=== PATIENT | female | born 1960 | race Caucasian/White ===

== ENCOUNTER 2019-12-06 13:29 | Emergency (ER) | payer OTHER ==
--- NOTE | 2019-12-06 14:39 | ER ---
Nurse's Notes [facility] Name: Melania Renteria Age: 59 yrs Sex: Female : 1960 Arrival Date: 12/06/2019 Time: 13:36 Bed 15 Private MD: Diagnosis: Abrasion of left ear Presentation: 12/05 13:42 Chief complaint: Patient states: Left ear bleeding for 3 hours. Happened after cleaning ll1 it out. No fever. Coronavirus screen: Proceed with normal triage. Patient denies a cough. Patient denies shortness of breath or difficulty breathing. Patient denies measured and/or subjective temperature greater than 100.4F prior to today's visit. Patient denies travel on a cruise ship or to a country the [facility] currently lists as an affected area. Patient denies contact with known and/or suspected case of COVID-19. Ebola Screen: Patient denies travel to an Ebola-affected area in the 21 days before illness onset. Initial Sepsis Screen: Does the patient meet any 2 criteria? No. Patient's initial sepsis screen is negative. Risk Assessment: Do you want to hurt yourself or someone else? Patient reports no desire to harm self or others. Onset of symptoms was December 06, 2019. 13:42 Method Of Arrival: Wheelchair ll1 13:42 Acuity: SONJA 4 ll1 Historical: - Allergies: 13:41 PENICILLINS; ll1 - PMHx: 13:41 Hypothyroidism; Depression; Arthritis; ll1 - PSHx: 13:41 ; Cholecystectomy; Lap Band; ll1 - Immunization history:: Flu vaccine is not up to date. - Social history:: Smoking status: Patient reports the use of cigarette tobacco products, smokes one-half pack cigarettes per day, Patient/guardian denies using alcohol, street drugs. Screenin:12 Abuse screen: Denies threats or abuse. Denies injuries from another. Nutritional ph screening: No deficits noted. Tuberculosis screening: No symptoms or risk factors identified. Fall Risk None identified. Assessment: 15:10 General: Appears in no apparent distress. comfortable, obese, well groomed, Behavior is ph calm, cooperative, appropriate for age. Pain: Denies pain. Neuro: Level of Consciousness is awake, alert, obeys commands, Oriented to person, place, time, situation. Cardiovascular: Capillary refill < 3 seconds in bilateral fingers Patient's skin is warm and dry. Respiratory: Airway is patent Respiratory effort is even, unlabored. EENT: Ear canal dried blood noted to outer ear, blood clot in place, not actively bleeding at this time. Derm: Skin is healthy with good turgor, Skin is pink, warm \T\ dry. Musculoskeletal: Circulation, motion, and sensation intact. Range of motion: intact in all extremities. Vital Signs: 13:42 BP 118 / 79; Pulse 81; Resp 19; Temp 97.3; Pulse Ox 94% ; Pain 0/10; ll1 ED Course: 13:36 Patient arrived in ED. mr 13:41 Arm band placed on. ll1 13:43 Triage completed. ll1 13:57 Veronica Pablo, RN is Primary Nurse. ph 14:18 Cata Handy FNP-C [facility]. kb 14:18 Francesco Milton MD is Attending Physician. kb 15:13 Patient has correct armband on for positive identification. Bed in low position. Call ph light in reach. Side rails up X 1. Pulse ox on. NIBP on. Door closed. Noise minimized. Warm blanket given. 15:13 No provider procedures requiring assistance completed. Patient did not have IV access ph during this emergency room visit. Administered Medications: No medications were administered Outcome: 14:38 Discharge ordered by MD. kb 15:13 Discharged to home via wheelchair, with friend. ph 15:13 Condition: good 15:13 Discharge instructions given to patient, Instructed on discharge instructions, follow up and referral plans. Demonstrated understanding of instructions, follow-up care. 15:14 Patient left the ED. ph Signatures: Cata Handy FNP-C FNP-Rosalba Chiqui Lerma Veronica Pablo, RN RN ph Alba Mills RN RN 1
--- NOTE | 2019-12-06 14:39 | EDPHYS ---
Physician Documentation [facility] Name: Melania Renteria Age: 59 yrs Sex: Female : 1960 Arrival Date: 12/06/2019 Time: 13:36 Bed 15 Private MD: ED Physician Francesco Milton HPI: 12/05 14:36 This 59 yrs old Female presents to ER via Wheelchair with complaints of Ear kb bleeding. 14:36 The patient presents with an injury. The complaints affect the left ear. Onset: The kb symptoms/episode began/occurred this morning. Modifying factors: The symptoms are alleviated by nothing, the symptoms are aggravated by nothing. Associated signs and symptoms: The patient has no apparent associated signs or symptoms. Severity of symptoms: At their worst the symptoms were mild in the emergency department the symptoms are unchanged. The patient has not experienced similar symptoms in the past. The patient has not recently seen a physician. Pt reports she cleaned her ear with a Q tip this morning and noticed blood coming from it about 45 minutes later. Reports she hasn't been able to get it to stop bleeding since then. Denies pain. Historical: - Allergies: 13:41 PENICILLINS; ll1 - PMHx: 13:41 Hypothyroidism; Depression; Arthritis; ll1 - PSHx: 13:41 ; Cholecystectomy; Lap Band; ll1 - Immunization history:: Flu vaccine is not up to date. - Social history:: Smoking status: Patient reports the use of cigarette tobacco products, smokes one-half pack cigarettes per day, Patient/guardian denies using alcohol, street drugs. ROS: 14:34 Constitutional: Negative for fever, chills, and weight loss, Cardiovascular: Negative kb for chest pain, palpitations, and edema, Respiratory: Negative for shortness of breath, cough, wheezing, and pleuritic chest pain, Abdomen/GI: Negative for abdominal pain, nausea, vomiting, diarrhea, and constipation, Neuro: Negative for headache, weakness, numbness, tingling, and seizure. 14:34 ENT: Positive for bleeding from left ear. Exam: 14:34 Constitutional: This is a well developed, well nourished patient who is awake, alert, kb and in no acute distress. Head/Face: Normocephalic, atraumatic. Chest/axilla: Normal chest wall appearance and motion. Nontender with no deformity. No lesions are appreciated. Cardiovascular: Regular rate and rhythm with a normal S1 and S2. No gallops, murmurs, or rubs. Normal PMI, no JVD. No pulse deficits. Respiratory: Lungs have equal breath sounds bilaterally, clear to auscultation and percussion. No rales, rhonchi or wheezes noted. No increased work of breathing, no retractions or nasal flaring. Abdomen/GI: Soft, non-tender, with normal bowel sounds. No distension or tympany. No guarding or rebound. No evidence of tenderness throughout. Neuro: Awake and alert, GCS 15, oriented to person, place, time, and situation. Cranial nerves II-XII grossly intact. Motor strength 5/5 in all extremities. Sensory grossly intact. Cerebellar exam normal. Normal gait. 14:34 ENT: Ear canal(s): small abrasion noted to ear canal at 6 o'clock with clotted blood, no active bleeding at this time, TM's: are normal. Vital Signs: 13:42 BP 118 / 79; Pulse 81; Resp 19; Temp 97.3; Pulse Ox 94% ; Pain 0/10; ll1 MDM: 14:18 Patient medically screened. kb 14:34 Data reviewed: vital signs, nurses notes. Data interpreted: Pulse oximetry: on room air kb is 94 %. Interpretation: normal. Counseling: I had a detailed discussion with the patient and/or guardian regarding: the historical points, exam findings, and any diagnostic results supporting the discharge/admit diagnosis, the need for outpatient follow up, a family practitioner, to return to the emergency department if symptoms worsen or persist or if there are any questions or concerns that arise at home. Administered Medications: No medications were administered Disposition: 19:37 Co-signature as Attending Physician, Francesco Milton MD. mh7 Disposition: 12/06/19 14:38 Discharged to Home. Impression: Abrasion of left ear. - Condition is Stable. - Discharge Instructions: Abrasion, [id number]. - Medication Reconciliation Form, Thank You Letter, Antibiotic Education, Prescription Opioid Use form. - Follow up: Emergency Department; When: As needed; Reason: Worsening of condition. Follow up: Private Physician; When: 2 - 3 days; Reason: Recheck today's complaints, Continuance of care, Re-evaluation by your physician. Signatures: Cata Handy, SHILPA PETERSEN-Veronica Servin, RN RN ph Alba Mills RN RN ll1 Francesco Milton MD MD mh7 Corrections: (The following items were deleted from the chart) 15:14 14:38 12/06/2019 14:38 Discharged to Home. Impression: Abrasion of left ear. Condition ph is Stable. Forms are Medication Reconciliation Form, Thank You Letter, Antibiotic Education, Prescription Opioid Use. Follow up: Emergency Department; When: As needed; Reason: Worsening of condition. Follow up: Private Physician; When: 2 - 3 days; Reason: Recheck today's complaints, Continuance of care, Re-evaluation by your physician. kb
[2019-12-06 15:20] VITALS: BP 118/79; TEMP 97.3; O2SAT 94
== END 2019-12-06 15:14 | disposition home or self-care (01) ==
LOC: ER 13:29
DX: S00.412A Abrasion of left ear, initial encounter (principal); W22.8XXA Striking against or struck by other objects, initial encounter; Y93.E8 Activity, other personal hygiene; Y92.9 Unspecified place or not applicable; F17.210 Nicotine dependence, cigarettes, uncomplicated; Z88.0 Allergy status to penicillin
CPT/HCPCS: 99283

== ENCOUNTER 2020-12-14 14:07 | Emergency (ER) | payer OTHER ==
[2020-12-14 19:07] LABS: Absolute Lymphocytes (CBC) 2.6 K/uL (0.7-4.9)
[2020-12-14 19:21] LABS: Basophils % 0.8 % (0-1.3); Hematocrit 46.6 % (36.0-45.0); Lymphocytes % 29.9 % (15.3-44.8); MPV 9.1 fL (7.6-11.3); RBC Red Blood Cell Count 5.33 M/uL (3.86-4.86)
[2020-12-14 19:31] LABS: Albumin 3.5 g/dL (3.4-5.0); Bilirubin Direct 0.2 mg/dL (0-0.2); Bilirubin Total 0.6 mg/dL (0.2-1.0); Potassium 3.5 mmol/L (3.5-5.1); Protein, Total 7.8 g/dL (6.4-8.2); Thyroid Stimulating Hormone 1.63 uIU/mL (0.360-3.740)
--- NOTE | 2020-12-14 20:05 | ER ---
Nurse's Notes [facility] Name: Melania Renteria Age: 60 yrs Sex: Female : 1960 Arrival Date: 12/14/2020 Time: 14:12 Bed 15 Private MD: Diagnosis: Abnormal uterine and vaginal bleeding, unspecified Presentation: 12/14 14:38 Chief complaint: Patient states: Vaginal bleeding this morning. Didn't have any problem ca1 like this in the past. Was sitting on recliner and stood up with blood on recliner and was running down my legs. Coronavirus screen: Client denies travel out of the [place] in the last 14 days. At this time, the client does not indicate any symptoms associated with coronavirus-19. Ebola Screen: Patient negative for fever greater than or equal to 101.5 degrees Fahrenheit, and additional compatible Ebola Virus Disease symptoms Patient denies exposure to infectious person. Patient denies travel to an Ebola-affected area in the 21 days before illness onset. No symptoms or risks identified at this time. Initial Sepsis Screen: Does the patient meet any 2 criteria? No. Patient's initial sepsis screen is negative. Does the patient have a suspected source of infection? No. Patient's initial sepsis screen is negative. Risk Assessment: Do you want to hurt yourself or someone else? Patient reports no desire to harm self or others. Onset of symptoms was December 14, 2020. 14:38 Method Of Arrival: Wheelchair ca1 14:38 Acuity: SONJA 3 ca1 Historical: - Allergies: 14:42 PENICILLINS; ca1 - PMHx: 14:42 Arthritis; Depression; Hypothyroidism; Diabetes mellitus; Hypertensive disorder; ca1 - Immunization history:: Client reports having NOT received the Covid vaccine. Flu vaccine is not up to date. - Social history:: Smoking status: Patient reports the use of cigarette tobacco products, smokes one pack cigarettes per day. Screenin:42 Abuse screen: Denies threats or abuse. Denies injuries from another. Nutritional zb screening: No deficits noted. Tuberculosis screening: No symptoms or risk factors identified. Fall Risk None identified. Assessment: 18:40 General: Appears in no apparent distress. Behavior is calm, cooperative, appropriate zb for age, Denies fever, feeling ill, fatigue, chills. Pain: Complains of pain in abdomen. Neuro: Level of Consciousness is awake, alert, obeys commands, Oriented to person, place, time, situation. Cardiovascular: Patient's skin is warm and dry. Respiratory: Airway is patent. GI: Abdomen is obese. : Urine is blood tinged, Reports vaginal bleeding that is moderate flow, Parent/caregiver report the patient having pain lower quadrant(s). Derm: Skin is intact, is healthy with good turgor, Skin is dry, Skin is normal. Derm: Musculoskeletal: Range of motion: intact in all extremities. 19:30 Reassessment: Patient appears in no apparent distress at this time. Patient and/or zb family updated on plan of care and expected duration. Pain level reassessed. Patient is alert, oriented x 3, equal unlabored respirations, skin warm/dry/pink. 20:04 Reassessment: Patient appears in no apparent distress at this time. Patient and/or zb family updated on plan of care and expected duration. Pain level reassessed. Patient is alert, oriented x 3, equal unlabored respirations, skin warm/dry/pink. ECP explained care to patient. patient remain in bed at this time. Vital Signs: 14:38 BP 112 / 79; Pulse 89; Resp 18 S; Temp 97.6(TE); Pulse Ox 99% on R/A; Weight 158.76 kg ca1 (R); Height 5 ft. 7 in. (170.18 cm) (R); Pain 1/10; 18:42 BP 140 / 95; Pulse 66; Resp 16; Pulse Ox 97% on R/A; zb 20:01 BP 143 / 96; Pulse 65; Resp 16; Pulse Ox 97% on R/A; zb 14:38 Body Mass Index 54.82 (158.76 kg, 170.18 cm) ca1 ED Course: 14:12 Patient arrived in ED. mr 14:42 Triage completed. ca1 14:42 Arm band placed on right wrist. ca1 17:14 Patient placed in an exam room, on a stretcher. zb 17:16 Gus Ospina NP is PHCP. pm1 17:16 Bruno Morejon MD is Attending Physician. pm1 17:28 Amber Luo RN is Primary Nurse. zb 18:09 Patient has correct armband on for positive identification. Bed in low position. Call mh5 light in reach. Side rails up X 1. Warm blanket given. Pillow given. Pulse ox on. NIBP on. 18:45 Missed attempt(s): 22 gauge in left wrist. upper arm. [facility] 19:00 Inserted saline lock: 24 gauge in right antecubital area, using aseptic technique. zb Blood collected. 20:01 Assist provider with pelvic exam: Set up pelvic tray. Performed by Gus buchanan Patient tolerated well. 20:08 IV discontinued, intact, bleeding controlled, No redness/swelling at site. Pressure zb dressing applied. Administered Medications: No medications were administered Outcome: 20:04 Discharge ordered by . pm1 20:07 Discharged to home via wheelchair. zb 20:07 Condition: stable 20:07 Discharge instructions given to patient, Instructed on discharge instructions, follow up and referral plans. Demonstrated understanding of instructions, follow-up care. 20:22 Patient left the ED. zb Signatures: Chiqui Lerma Gus Pastor NP [employer] 1 Naima Garcias [facility] Beronica Clayton RN RN Amber Hale RN RN zkeegan
--- NOTE | 2020-12-14 20:05 | EDPHYS ---
Physician Documentation [facility] Name: Melania Renteria Age: 60 yrs Sex: Female : 1960 Arrival Date: 12/14/2020 Time: 14:12 Bed 15 Private MD: JENN Physician Bruno Morejon HPI: 12/14 17:31 This 60 yrs old Female presents to ER via Wheelchair with complaints of pm1 Vaginal Bleeding. 17:31 The patient presents with vaginal bleeding that is. Onset: The symptoms/episode pm1 began/occurred this morning. Modifying factors: The symptoms are alleviated by nothing, the symptoms are aggravated by nothing. Associated signs and symptoms: Pertinent negatives: dysuria, fever, nausea, vomiting, abdominal pain. Severity of symptoms: in the emergency department the symptoms are unchanged. The patient is not sexually active. The patient has not experienced similar symptoms in the past. The patient has not recently seen a physician. menopause 11 years ago. Historical: - Allergies: 14:42 PENICILLINS; ca1 - PMHx: 14:42 Arthritis; Depression; Hypothyroidism; Diabetes mellitus; Hypertensive disorder; ca1 - Immunization history:: Client reports having NOT received the Covid vaccine. Flu vaccine is not up to date. - Social history:: Smoking status: Patient reports the use of cigarette tobacco products, smokes one pack cigarettes per day. ROS: 17:31 Positive for vaginal bleeding, Negative for urinary symptoms, pelvic pain, flank pm1 pain. 17:31 Constitutional: Negative for fever, chills, and weight loss. 17:31 Cardiovascular: Negative for chest pain, palpitations, and edema, Respiratory: Negative for shortness of breath, cough, wheezing, and pleuritic chest pain, Abdomen/GI: Negative for abdominal pain, nausea, vomiting, diarrhea, and constipation, Back: Negative for injury and pain, Skin: Negative for injury, rash, and discoloration, Neuro: Negative for headache, weakness, numbness, tingling, and seizure. 17:31 All other systems are negative. Exam: 17:31 Constitutional: This is a well developed, well nourished patient who is awake, alert, pm1 and in no acute distress. Head/Face: Normocephalic, atraumatic. 17:31 Skin: Warm, dry with normal turgor. Normal color with no rashes, no lesions, and no evidence of cellulitis. MS/ Extremity: Pulses equal, no cyanosis. Neurovascular intact. Full, normal range of motion. 17:31 Eyes: Exam is negative for acute changes, Extraocular movements: no acute changes, Conjunctiva: normal, no injection, no acute changes, Sclera: no acute changes, icterus, is not appreciated. 17:31 ENT: Mouth: Lips: normal, Oral mucosa: normal, pink and intact, moist. 17:31 Cardiovascular: Rate: normal, Rhythm: regular, Pulses: no pulse deficits are appreciated. 17:31 Respiratory: Exam negative for acute changes, respiratory distress, shortness of breath, Breath sounds: are clear throughout. 17:31 Abdomen/GI: Inspection: obese Palpation: abdomen is soft and non-tender, in all quadrants. 17:31 Neuro: Exam negative for acute changes, Orientation: is normal, Mentation: is normal, Motor: is normal, moves all fours. 20:03 : Pelvic Exam: External exam: Patient unable to tolerate lying on her back. Patient pm1 in left side lying position and visualized blood present from atrophic introitus and vagina. No blood present from anus, Gissel Sutton RN. Vital Signs: 14:38 BP 112 / 79; Pulse 89; Resp 18 S; Temp 97.6(TE); Pulse Ox 99% on R/A; Weight 158.76 kg ca1 (R); Height 5 ft. 7 in. (170.18 cm) (R); Pain 1/10; 18:42 BP 140 / 95; Pulse 66; Resp 16; Pulse Ox 97% on R/A; zb 20:01 BP 143 / 96; Pulse 65; Resp 16; Pulse Ox 97% on R/A; zb 14:38 Body Mass Index 54.82 (158.76 kg, 170.18 cm) ca1 MDM: 17:23 Patient medically screened. [facility] 20:03 Data reviewed: vital signs. Data interpreted: Pulse oximetry: on room air is 97 %. pm1 Interpretation: normal. Counseling: I had a detailed discussion with the patient and/or guardian regarding: the historical points, exam findings, and any diagnostic results supporting the discharge/admit diagnosis, lab results, the need for outpatient follow up, an OB/Gyne specialist, to return to the emergency department if symptoms worsen or persist or if there are any questions or concerns that arise at home. 12/14 17:28 Order name: Basic Metabolic Panel; Complete Time: 19:33 pm1 12/14 17:28 Order name: CBC with Diff; Complete Time: 19:33 pm1 12/14 17:28 Order name: Hepatic Function; Complete Time: 19:33 pm1 12/14 17:28 Order name: TSH; Complete Time: 19:33 pm1 12/14 18:35 Order name: Urine Microscopic Only zb 12/14 17:28 Order name: IV Saline Lock; Complete Time: 19:13 pm1 12/14 17:28 Order name: Labs collected and sent; Complete Time: 19:13 pm1 Administered Medications: No medications were administered Disposition: 12/15 13:23 Co-signature as Attending Physician, Bruno Mroejon MD I agree with the assessment and yves plan of care. Disposition Summary: 12/14/20 20:04 Discharge Ordered Location: Home pm1 Problem: new pm1 Symptoms: have improved pm1 Condition: Stable pm1 Diagnosis - Abnormal uterine and vaginal bleeding, unspecified pm1 Followup: pm1 - With: Emergency Department - When: As needed - Reason: Worsening of condition Followup: pm1 - With: Private Physician - When: 2 - 3 days - Reason: Recheck today's complaints, Continuance of care, Re-evaluation by your physician Discharge Instructions: - Discharge Summary Sheet pm1 - Abnormal Uterine Bleeding pm1 - Postmenopausal Bleeding pm1 Forms: - Medication Reconciliation Form pm1 - Thank You Letter pm1 - Antibiotic Education pm1 - Prescription Opioid Use pm1 Signatures: Dispatcher [employer] Bruno Sky MD MD cha Marinas, Patrick, NP SILICATOR pm1 Beronica Clayton, RN RN ca1
[2020-12-14 21:16] VITALS: TEMP 97.6
[2020-12-14 21:18] VITALS: O2SAT 97
[2020-12-14 21:20] VITALS: BP 143/96
== END 2020-12-14 20:22 | disposition home or self-care (01) ==
LOC: ER 14:07
DX: N93.9 Abnormal uterine and vaginal bleeding, unspecified (principal); I10 Essential (primary) hypertension; F17.210 Nicotine dependence, cigarettes, uncomplicated; Z88.0 Allergy status to penicillin
CPT/HCPCS: 36415; 80048; 80076; 84443; 85025; 99284

== ENCOUNTER 2021-01-08 06:50 | Day surgery (SDC) | payer OTHER ==
[2021-01-08] MEDS ORDERED: NA CHLORIDE 0.9% 1,000 ML ONE ×2 (07:16→08:08)
[2021-01-08] MEDS ORDERED: LIDOCAINE 1% W/EPI 1:100,000 MDV 20 ML VIAL ONE (07:39)
[2021-01-08] MEDS ORDERED: MIDAZOLAM HCL 2 MG/2 ML INJ ONE (07:50)
[2021-01-08] MEDS ORDERED: FENTANYL CITR 100 MCG/2 ML ONE (07:50)
[2021-01-08] MEDS ORDERED: propofoL 200 MG/20 ML VIAL IV ONE (07:50)
[2021-01-08] MEDS ORDERED: LIDOCAINE 2% MPF 5 ML VIAL ONE (07:50)
[2021-01-08] MEDS ORDERED: KETOROLAC 30 MG/ML INJ ONE (08:06)
[2021-01-08] MEDS ORDERED: dexAMETHasone 4 MG/ML VIAL ONE (08:07)
[2021-01-08] MEDS ORDERED: ONDANSETRON 4 MG/2 ML VIAL ONE (08:07)
[2021-01-08] MEDS ORDERED: MEPERIDINE HCL 25 MG/ML SYR IM PRN (08:44)
[2021-01-08] MEDS ORDERED: SEMAGLUTIDE 7 MG PO SCH (09:00)
[2021-01-08] MEDS ORDERED: HOME MED 1 EA UNK (Duloxetine Hcl [Duloxetine Hcl] 60 MG Capsule.Dr) PO SCH (09:00)
[2021-01-08] MEDS ORDERED: PANTOPRAZOLE 40MG TABLET PO SCH (09:00)
[2021-01-08] MEDS ORDERED: HOME MED 1 EA UNK (Levothyroxine Sodium [Levothyroxine] 200 MCG Capsule) PO SCH (09:00)
[2021-01-08] MEDS ORDERED: LOSARTAN POTASSIUM 50 MG TABLET PO SCH (09:00)
--- NOTE | 2021-01-08 09:04 | P.BOP ---
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
[2021-01-08 10:00] VITALS: BP 118/73; TEMP 97.1; O2SAT 93
--- NOTE | 2021-01-08 10:26 | OP ---
Date of Procedure: 01/08/2021 Surgeon: Tonie Cortez MD [employer] Specials: None. Preoperative Diagnosis: Postmenopausal bleeding, morbid obesity with BMI of 68. The patient on anti coagulation at the time the bleeding occurred. Postoperative Diagnosis: Postmenopausal bleeding, morbid obesity with BMI of 68. The patient on ant icoagulation at the time the bleeding occurred. Procedure Performed: 1.Exam under anesthesia. 2.Hysteroscopy. 3.Dilation and curettage. Anesthesia: General with LMA. Specimens: Endometrial biopsy with Pipelle and endometrial curettings with a curette. Estimated Blood Loss: Minimal. Complications: No complications. Drains: None. Condition: Stable. Findings: Severely anteflexed cavity. No intracavitary masses. Small amount of intrauterine adhesi ons on the right side. Description Of Procedure: After informed consent was verified, the patient was taken back to OR, [facility] in a supine fashion on the operating table. General anesthesia was given. She was placed in berta fady lithotomy position using Kolby stirrups. Carefully moved down and positioning was readjusted to facilitate a pelvic exam. Speculum placed to expose the cervix. It was difficult to expose this. So an exam was performed to palpate the vaginal canal with unremarkable vulva, vagina unremarkable. No prolapse noted. Then, th e patient was repositioned, fold down, and speculum placed to expose the cervix. Anterior lip graspe d with a single-tooth tenaculum and external os opened up with the long hemostats. Then, the diagnos tic SlimLine hysteroscope used to enter the cervical canal under direct vision. It was traversed thr ough the cervical canal into the uterine cavity. Cavity was unremarkable. Severe anteflexion had to be achieved to get into the cavity. Both tubal ostia were well visualized. The adhesions were take n down with the help of the tip of the scope. Then, no intracavitary masses were noted. No abnormal , irregular endometrium noted, however, in 1 area, there was slight thickening and calcifications. T he scope was pulled out. Endometrial Pipelle was used to obtain a biopsy. Three passes were taken a nd handed out. This was done because there was a suspicion that there could be not an adequate sampl ing with curettage. The cervix was dilated to 14-Mongolian, then #1 curette was used to perform curettage on a Telfa to retr ieve the specimen. Once this was done 360 on all hay, handed off for permanent pathology. The ten aculum was taken down under direct vision. The sites were checked. Minimal bleeding on the left zhao e, completely hemostatic on the right. This was observed with pressure and there was good hemostasis . All these were removed. Instrument, needle, and sponge counts were correct at the end of the case . The patient was carefully transferred from her operating room bed to the outpatient bed and she wa s taken to the PACU in stable condition. There was a small ecchymotic area on the right lower extrem ity on the leg, inside the area of the SCD placement. We will discuss with the patient if this is so mething that was preexistent, but no complications. She will have 1 week followup with me. STANTON Voice ID: [id number] Report ID: [id number]
== END 2021-01-08 09:50 | disposition home or self-care (01) ==
LOC: OR 06:50
PROVIDERS: ATTEND Obstetrics & Gynecology
PROC: 0UJD8ZZ Inspection of Uterus and Cervix, Via Natural or Artificial Opening Endoscopic (ICD-10-PCS; 2021-01-08)
PROC: 0UDB7ZX Extraction of Endometrium, Via Natural or Artificial Opening, Diagnostic (ICD-10-PCS; principal; 2021-01-08 07:30)
DX: N95.0 Postmenopausal bleeding (principal); E66.01 Morbid (severe) obesity due to excess calories; Z68.44 Body mass index [BMI] 60.0-69.9, adult; I10 Essential (primary) hypertension; F17.200 Nicotine dependence, unspecified, uncomplicated; N83.291 Other ovarian cyst, right side; Z20.822 Contact with and (suspected) exposure to COVID-19
CPT/HCPCS: 82947; 88305; 58558; U0002; J2704; J1100; J2250; J3010; J7030 ×2; J2405

== ENCOUNTER 2022-01-14 21:50 | Inpatient (IN) | payer OTHER ==
--- OUTSIDE RECORDS SUMMARY | 2022-01-14 23:03 | XMS REPORT | Continuity of Care Document ---
:1960 Author Organization [facility] t Address [address] [place] [address] Dr. Davis [address] [place] [id number] Care Team Providers Name Role Phone OLIVERIO BLANCAS Attending Clinician Unavailable VERENICE Attending Clinician Unavailable OLIVERIO BLANCAS Attending Clinician Unavailable OLIVERIO BLANCAS Admitting Clinician Unavailable VERENICE Admitting Clinician Unavailable Payers Payer Name Policy Type Policy Number Effective Date Expiration Date S opal MEDICARE A B [id number] 2006 00:00:00 MEDICAID [place] [id number] 2021 00:00:00 MEDICARE PART A [id number] \[id number]\ [id number] - MEDICARE [facility]-MEDICAID - [id number] MEDICAID Problems This patient has no known problems. Allergies, Adverse Reactions, Alerts Allergy Allergy Status Severity Reaction(s) Onset Inactive Treating Comm ents Source Name Type Date Date Clinician NO KNOWN Allergy Active [facility] ALLERGIE S Medications This patient has no known medications. Procedures This patient has no known procedures. Encounters Start End Encounter Admission Attending Care Care Encounter Source Date/Time Date/Time Type Type Clinicians Facility Department ID 2021-09-09 Outpatient ASHWIN BLANCAS Surgery [id number] [facility] 10:58:42 OLIVERIO 2021-12-22 2021-12-22 Outpatient ADALBERTO HINTON [address] 05:28:00 05:28:[id number] [facility] Program 2021-10-08 2021-10-08 Outpatient FELIX CHRISTOPHER [facility] [id number] [facility] 00:00:00 00:00:00 2021-09-18 2021-09-18 Outpatient ASHWIN AGUILERA [facility] [id number] SLE 00:00:00 23:59:00 OLIVERIO 2021-09-08 2021-09-08 Outpatient JOEL BLANCAS [facility] [id number] [facility] 13:41:44 15:49:12 OLIVERIO garibay of Medicin e Results This patient has no known results.
[2022-01-14 23:16] LABS: Albumin 2.3 g/dL (3.4-5.0); Bilirubin Total 0.7 mg/dL (0.2-1.0); Protein, Total 6.1 g/dL (6.4-8.2)
[2022-01-14 23:22] LABS: Potassium 2.9 mmol/L (3.5-5.1)
[2022-01-14 23:40] LABS: Absolute Lymphocytes (CBC) 1.6 K/uL (0.7-4.9); Hematocrit 50.9 % (36.0-45.0); Lymphocytes % 12.9 % (15.3-44.8); MCV 87.3 fL (80-100); MPV 8.4 fL (7.6-11.3); RBC Red Blood Cell Count 5.83 M/uL (3.86-4.86)
[2022-01-14] MEDS ORDERED: FAMOTIDINE 20 MG/2 ML VIAL IV ONE (23:46)
[2022-01-14] MEDS ORDERED: NA CHLORIDE 0.9% 1,000 ML ONE (23:46)
[2022-01-14] MEDS ORDERED: ONDANSETRON 4 MG/2 ML VIAL ONE (23:46)
[2022-01-15] MEDS ORDERED: KCL 20 MEQ/100 mL IVPB 100 ML IV ONE (00:10)
--- NOTE | 2022-01-15 01:08 | EDPHYS ---
Physician Documentation [facility] Name: Melania Renteria Age: 61 yrs Sex: Female : 1960 Arrival Date: 01/14/2022 Time: 21:55 Bed 14 Private MD: ED Physician Jeb Duke HPI: 01/14 23:59 This 61 yrs old Unknown Female presents to ER via Wheelchair with complaints of rn Abdominal Pain. 23:59 The patient presents with abdominal pain in the epigastric area. Onset: The rn symptoms/episode began/occurred 6 week(s) ago. The symptoms do not radiate. Associated signs and symptoms: Pertinent negatives: blood in stools, chest pain, constipation, fever, headache, shortness of breath, vomiting. The symptoms are described as achy, crampy. Modifying factors: The symptoms are alleviated by nothing, the symptoms are aggravated by touching the area. Severity of pain: At its worst the pain was mild in the emergency department the pain has improved. The patient has experienced similar episodes in the past. The patient has not recently seen a physician. Pt reports intermittent upper abd pain for 6 weeks. Has had cholecystectomy. Reports diarrhea/loose stool since cholecystectomy. No fever/vomiting/chest pain/sob. No blood in stool. . Historical: - Allergies: 22:15 PENICILLINS; vc1 - Home Meds: 22:15 propafenone 225 mg Oral tab 1 tab twice a day [Active]; gabapentin 100 mg oral cap 1 vc1 cap 3 times per day [Active]; ibuprofen 800 mg Oral tab 1 tab 3 times per day [Active]; quetiapine 50 mg oral tab 1 tab nightly [Active]; levothyroxine 200 mcg cap 1 cap once daily [Active]; pantoprazole 40 mg oral TbEC 1 tab once daily [Active]; Rybelsus 7 mg oral tab 1 tab once daily [Active]; losartan 50 mg oral tab 1 tab once daily [Active]; duloxetine 60 mg oral CDRS 1 cap once daily [Active]; Xarelto 20 mg oral tab 1 tab once daily [Active]; - PMHx: 22:15 Arthritis; Depression; diabetes mellitus; Hypertensive disorder; Hypothyroidism; Atrial vc1 fibrillation; - PSHx: 22:15 Cholecystectomy; vc1 - Immunization history:: Adult Immunizations unknown, Client reports having NOT received the Covid vaccine. - Social history:: Smoking status: Patient reports the use of cigarette tobacco products, greater than 1/2 pack/day. - Family history:: not pertinent. - Hospitalizations: : No recent hospitalization is reported. ROS: 23:59 Constitutional: Negative for fever, chills, and weight loss, Eyes: Negative for injury, rn pain, redness, and discharge, Neck: Negative for injury, pain, and swelling, Cardiovascular: Negative for chest pain, palpitations, and edema, Respiratory: Negative for shortness of breath, cough, wheezing, and pleuritic chest pain, Abdomen/GI: + upper abd pain Back: Negative for injury and pain, MS/Extremity: Negative for injury and deformity, Skin: Negative for injury, rash, and discoloration, Neuro: Negative for headache, numbness, tingling, and seizure. Exam: 23:59 Constitutional: This is a well developed, well nourished patient who is awake, alert, rn and in no acute distress. Head/Face: Normocephalic, atraumatic. Cardiovascular: Regular rate and rhythm. No pulse deficits. Respiratory: No increased work of breathing, no retractions or nasal flaring. Abdomen/GI: Soft, non-tender Skin: Warm, dry MS/ Extremity: Pulses equal, no cyanosis. Neuro: Awake and alert, GCS 15 Vital Signs: 22:13 BP 132 / 97; Pulse 95; Resp 20; Temp 99.1(O); Pulse Ox 93% on R/A; Weight 130.63 kg; vc1 Height 5 ft. 7 in. (170.18 cm); Pain 0/10; 22:13 Body Mass Index 45.11 (130.63 kg, 170.18 cm) vc1 MDM: 21:55 Patient medically screened. rn 23:59 ED course: Pt states 6 weeks of intermittent pain, goes away on its own, worse at admitted attorneys. Currently pain free.. 01/15 01:06 Differential diagnosis: gastritis, gastroesophageal reflux disease, non-specific abd rn pain, pancreatitis, Peptic Ulcer Disease, pneumonia. Data reviewed: vital signs, nurses notes, lab test result(s), radiologic studies, CT scan, and as a result, I will admit patient. Counseling: I had a detailed discussion with the patient and/or guardian regarding: the historical points, exam findings, and any diagnostic results supporting the discharge/admit diagnosis, lab results, radiology results, the need for further work-up and treatment in the hospital. Response to treatment: the patient's symptoms have mildly improved after treatment, and as a result, I will admit patient. Admission orders: after a detailed discussion of the patient's condition and case, the admit orders are written by me. 01/14 22:11 Order name: CBC with Diff; Complete Time: 23:57 rn 01/14 22:11 Order name: CMP; Complete Time: 23:31 rn 01/14 22:11 Order name: Lipase; Complete Time: 23:31 rn 01/15 00:57 Order name: Blood Culture Adult (2) rn 01/15 00:57 Order name: Lactate rn 01/15 00:58 Order name: SARS-COV-2 RT PCR (Document "Date of Onset" if Symptomatic) rn 01/15 02:11 Order name: Glucose, Ancillary Testing; Complete Time: 03:15 EDCT 01/15 05:44 Order name: CBC with Automated Diff EDCT 01/15 06:07 Order name: Comprehensive Metabolic Panel EDCT 01/15 06:07 Order name: Troponin High Sensitivity EDCT 01/15 06:07 Order name: Lipid Profile EDCT 01/15 06:07 Order name: T4 Free EDCT 01/15 06:07 Order name: Magnesium EDCT 01/15 06:07 Order name: Carcinoembryonic Antigen EDCT 01/14 22:11 Order name: CT Abd/Pelvis - IV Contrast Only rn 01/14 22:11 Order name: IV Saline Lock; Complete Time: 22:56 rn 01/15 00:57 Order name: XRAY Chest (1 view) rn 01/15 06:07 Order name: Thyroid Stimulating Hormone EDCT 01/15 08:22 Order name: US EDCT 01/15 08:44 Order name: Glucose, Ancillary Testing EDCT 01/15 11:31 Order name: Glucose, Ancillary Testing EDCT 01/15 11:56 Order name: NT PRO-BNP EDCT 01/15 11:57 Order name: Troponin High Sensitivity EDCT 01/15 17:33 Order name: Glucose, Ancillary Testing EDCT 01/14 22:11 Order name: Labs collected and sent; Complete Time: 23:55 rn Administered Medications: 01/14 23:54 Drug: NS 0.9% 1000 ml Route: IV; Rate: 1 bolus; Site: left forearm; ja4 23:55 Drug: Pepcid (famotidine) 20 mg Route: IVP; Site: right forearm; ja4 23:55 Drug: Zofran (Ondansetron) 4 mg Route: IVP; Site: right forearm; ja4 01/15 00:13 Drug: Potassium Chloride 20 mEq Route: IV; Rate: calculated rate; Site: right forearm; ja4 03:30 Drug: LevaQUIN (levofloxacin) 750 mg Volume: 150 ml; Route: IVPB; Infused Over: 90 ja4 mins; Site: right forearm; 03:30 Drug: Potassium Effervescent Tablet 50 mEq Route: PO; ja4 Disposition Summary: 01/15/22 01:07 Hospitalization Ordered Hospitalization Status: Inpatient Admission rn Provider: Brandon Mendez rn Condition: Stable rn Problem: new rn Symptoms: have improved rn Bed/Room Type: Standard rn Location: Telemetry/MedSurg (Inpatient)(01/15/22 19:27) cg Room Assignment: [facility](01/15/22 19:27) cg Diagnosis - Pneumonia, unspecified organism rn - COPD/ Chronic obstructive pulmonary disease with acute lower respiratory infection rn - Liver mass, unspecified rn Forms: - Medication Reconciliation Form rn - SBAR form rn Signatures: Dispatcher [employer] EDJeb Barone MD MD rn Attema, Lee, SWITCHBOARD INSTALLER-C SWITCHBOARD INSTALLER-Cla1 Marta Raines RN RN cg Karen Garcia RN RN vc1 Allen Jarrett RN RN ja4 Corrections: (The following items were deleted from the chart) 04:01 01:07 Telemetry/MedSurg (observation) rn cg 04:01 01:07 rn cg 19: 04:01 [facility] ER HOLD cg cg 19: 04:01 ERHOLD- cg cg
--- NOTE | 2022-01-15 01:08 | ER ---
Nurse's Notes [facility] Name: Melania Renteria Age: 61 yrs Sex: Female : 1960 Arrival Date: 01/14/2022 Time: 21:55 Bed 14 Private MD: Diagnosis: Pneumonia, unspecified organism;COPD/ Chronic obstructive pulmonary disease with acute lower respiratory infection;Liver mass, unspecified Presentation: 01/14 22:13 Chief complaint: Patient states: "I have been having stomach pain every day for the vc1 last 6 weeks, yesterday I had diarrhea.". Coronavirus screen: Vaccine status: Patient reports being unvaccinated. At this time, the client does not indicate any symptoms associated with coronavirus-19. Ebola Screen: No symptoms or risks identified at this time. Initial Sepsis Screen: Does the patient meet any 2 criteria? No. Patient's initial sepsis screen is negative. Does the patient have a suspected source of infection? No. Patient's initial sepsis screen is negative. Risk Assessment: Do you want to hurt yourself or someone else? Patient reports no desire to harm self or others. Onset of symptoms is unknown. 22:13 Method Of Arrival: Wheelchair vc1 22:13 Acuity: SONJA 3 vc1 Triage Assessment: 22:20 General: Appears in no apparent distress. uncomfortable, obese, Behavior is vc1 cooperative, appropriate for age, Smells of cigarettes. Pain: Complains of pain in epigastric area Pain does not radiate. Pain currently is 0 out of 10 on a pain scale. at worst was 8 out of 10 on a pain scale. EENT: No deficits noted. Neuro: Level of Consciousness is awake, alert, obeys commands, Oriented to person, place, time, situation. Cardiovascular: Capillary refill < 3 seconds Patient's skin is warm and dry. Respiratory: Airway is patent Respiratory effort is even, unlabored, Respiratory pattern is regular, symmetrical. GI: Abdomen is round Reports cramping, diarrhea, epigastric pain. : No deficits noted. Derm: No deficits noted. Musculoskeletal: No deficits noted. Historical: - Allergies: 22:15 PENICILLINS; vc1 - Home Meds: 22:15 propafenone 225 mg Oral tab 1 tab twice a day [Active]; gabapentin 100 mg oral cap 1 vc1 cap 3 times per day [Active]; ibuprofen 800 mg Oral tab 1 tab 3 times per day [Active]; quetiapine 50 mg oral tab 1 tab nightly [Active]; levothyroxine 200 mcg cap 1 cap once daily [Active]; pantoprazole 40 mg oral TbEC 1 tab once daily [Active]; Rybelsus 7 mg oral tab 1 tab once daily [Active]; losartan 50 mg oral tab 1 tab once daily [Active]; duloxetine 60 mg oral CDRS 1 cap once daily [Active]; Xarelto 20 mg oral tab 1 tab once daily [Active]; - PMHx: 22:15 Arthritis; Depression; diabetes mellitus; Hypertensive disorder; Hypothyroidism; Atrial vc1 fibrillation; - PSHx: 22:15 Cholecystectomy; vc1 - Immunization history:: Adult Immunizations unknown, Client reports having NOT received the Covid vaccine. - Social history:: Smoking status: Patient reports the use of cigarette tobacco products, greater than 1/2 pack/day. - Family history:: not pertinent. - Hospitalizations: : No recent hospitalization is reported. Screenin:22 Abuse screen: Denies threats or abuse. Nutritional screening: No deficits noted. vc1 Tuberculosis screening: No symptoms or risk factors identified. Fall Risk None identified. Assessment: 22:22 Reassessment: Uses CPAP at night. vc1 22:57 Pain: Complains of pain in abdomen Pain began 6 weeks Is continuous, Aggravated by. ja4 23:13 Reassessment: ct has been called and has been notified that pt has stat creatinine for ja4 them and they can take pt when they. 01/15 01:52 Reassessment: phlebotomy has been called to collect blood for pt due to being a very ja4 hard stick. waiting for blood before starting pt on antibiotics at this time. 03:32 Reassessment: pt had all labs drawn but new lab protocol has kept a perfectly testable ja4 sample from being used. the blood culture for pt was rejected due to red top tube was not filled enough. second sample excepted. antibiotics started. Vital Signs: 01/14 22:13 BP 132 / 97; Pulse 95; Resp 20; Temp 99.1(O); Pulse Ox 93% on R/A; Weight 130.63 kg; vc1 Height 5 ft. 7 in. (170.18 cm); Pain 0/10; 22:13 Body Mass Index 45.11 (130.63 kg, 170.18 cm) vc1 ED Course: 21:55 Patient arrived in ED. ja2 21:55 Jeb Duke MD is Attending Physician. rn 22:15 Triage completed. vc1 22:19 Allen Jarrett, RN is Primary Nurse. ja4 22:22 Arm band placed on right wrist. vc1 22:22 Patient has correct armband on for positive identification. Bed in low position. Call vc1 light in reach. Pulse ox on. NIBP on. 22:54 Inserted saline lock: 22 gauge in right forearm, using aseptic technique. vc1 22:56 CBC with Diff Sent. ja4 22:56 CMP Sent. ja4 22:56 Lipase Sent. ja4 22:57 No provider procedures requiring assistance completed. ja4 23:40 CT Abd/Pelvis - IV Contrast Only Sent. ja4 23:55 CT Abd/Pelvis - IV Contrast Only In Process Unspecified. EDMS 01/15 01:06 Brandon Mendez MD is Hospitalizing Provider. rn 01:15 XRAY Chest (1 view) In Process Unspecified. EDMS 01:52 SARS-COV-2 RT PCR (Document "Date of Onset" if Symptomatic) Sent. ja4 20:59 Patient admitted, IV remains in place. ll3 Administered Medications: 01/14 23:54 Drug: NS 0.9% 1000 ml Route: IV; Rate: 1 bolus; Site: left forearm; ja4 23:55 Drug: Pepcid (famotidine) 20 mg Route: IVP; Site: right forearm; ja4 23:55 Drug: Zofran (Ondansetron) 4 mg Route: IVP; Site: right forearm; ja4 01/15 00:13 Drug: Potassium Chloride 20 mEq Route: IV; Rate: calculated rate; Site: right forearm; ja4 03:30 Drug: LevaQUIN (levofloxacin) 750 mg Volume: 150 ml; Route: IVPB; Infused Over: 90 ja4 mins; Site: right forearm; 03:30 Drug: Potassium Effervescent Tablet 50 mEq Route: PO; ja4 Medication: 01/14 22:23 VIS not applicable for this client. vc1 Outcome: 01/15 01:07 Decision to Hospitalize by Provider. rn 04:56 Admitted to ER Hold. Please see [facility] for further documentation. ja4 20:59 Admitted to Med/surg accompanied by nurse, via wheelchair, room 216, with oxygen, with ll3 chart, Report called to SANTANA Nur 20:59 Condition: stable 20:59 Instructed on the need for admit, Demonstrated understanding of instructions. 21:00 Patient left the ED. ll3 Signatures: Dispatcher [employer] EDMS Jeb Duke MD MD rn Alexander, Jessica ja2 Lotus Ricks RN RN [id number] Karen Garcia RN RN 1 Allen Jarrett RN RN [email or web address]
[2022-01-15] MEDS ORDERED: Levofloxacin 750mg IV 750 MG/150 ML BAG IV ONE (03:28)
[2022-01-15] MEDS ORDERED: POTASSIUM 25 MEQ EFFERV TAB ONE (03:28)
--- NOTE | 2022-01-15 03:35 | P.HP ---
Certification for Inpatient Patient admitted to: Inpatient With expected LOS: >2 Midnights Patient will require the following post-hospital care: None Practitioner: I am a practitioner with admitting privileges, knowledge of patient current condition, hospital course, and medical plan of care. Services: Services provided to patient in accordance with Admission requirements found in Title 42 Section 412.3 of the Code of Federal Regulations <Everette Astorga - Last Filed: 01/15/22 03:30> Patient History Date of Service: 01/15/22 Reason for admission: Sepsis, pneumonia History of Present Illness: 61-year-old female with history of atrial fibrillation on chronic anticoagulation, hypertension, hypothyroidism hes-[id number]-wpfpycmet diabetes, obstructive sleep apnea and GERD presents the emergency department for epigastric pain, cough/shortness of breath. Patient reports her epigastric pain began a few days ago, is worse at night, she describes it as an "ulcer-like pain". Patient does admit to taking 800 mg of ibuprofen every night for arthritis in her knees. She was evaluated in the emergency department her labs were significant for white blood cell count of 12.2 hemoglobin 6.8 hematocrit 50.9 potassium 2.9 glucose 117 AST 51 alk phos [address] of her abdomen pelvis which demonstrated small to moderate right pleural effusion, focal right middle lobe airspace infiltrate as well as findings concerning for metastatic disease in the liver with a small amount of peritoneal ascites, no visualized primary neoplasm, shotty periaortic lymph nodes noted. A follow-up chest x-ray revealed small right pleural effusion as well as patchy right airspace disease findings could represent atelectasis versus superimposed infection. Patient met SIRS criteria for leukocytosis, tachycardia with suspected source infection being right-sided pneumonia. Patient was given antibioticsLevaquin findings of her CT including concern for metastatic disease of the liver were discussed with her in detail. ED provider wishes to admit for further evaluation and management of sepsis, pneumonia. 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 - Family History Father -: Cancer Mother -: Cancer Brother -: Cancer - Social History Smoking Status: Current every day smoker Counseled patient to stop smoking for: less than 10 minutes Smoking therapy provided: Yes Alcohol use: Yes CD- Drugs: No Caffeine use: Yes Place of Residence: Home <Everette Astorga - Last Filed: 01/15/22 03:30> Date of Service: 01/15/22 <Brandon Mendez - Last Filed: 01/15/22 15:04> Allergies NKDA Allergy (Uncoded 04/23/15 21:00) Unknown Home Medications: Duloxetine HCl 60 mg PO DAILY 01/05/21 Ibuprofen 800 mg PO DAILY 01/05/21 Levothyroxine Sodium [Levothyroxine] 200 mcg PO DAILY 01/05/21 Losartan Potassium 50 mg PO DAILY 01/05/21 Pantoprazole [Protonix Tab] 40 mg PO DAILY 01/05/21 Propafenone [Rythmol SR] 225 mg PO DAILY 01/05/21 Rivaroxaban [Xarelto] 20 mg PO DAILY 01/05/21 Semaglutide [Rybelsus] 7 mg PO BID 01/05/21 Review of Systems 10-point ROS is otherwise unremarkable Respiratory: Cough, Shortness of Breath Gastrointestinal: Nausea, Abdominal Pain <Everette Astorga - Last Filed: 01/15/22 03:30> Physical Examination - Physical Exam General: Alert, In no apparent distress, Oriented x3, Obese HEENT: Atraumatic, PERRLA, Mucous membr. moist/pink, EOMI, Sclerae nonicteric Neck: Supple, 2+ carotid pulse no bruit, No LAD, Without JVD or thyroid abnormality Respiratory: Clear to auscultation bilaterally, Diminished Cardiovascular: Regular rate/rhythm, Normal S1 S2 Gastrointestinal: Normal bowel sounds, No tenderness Musculoskeletal: No tenderness Integumentary: No rashes Neurological: Normal speech, Normal strength at 5/5 x4 extr, Normal tone, Normal affect - Studies Laboratory Data (last 24 hrs) 01/14/22 22:44: Sodium 143, Potassium 2.9 L*, BUN 14, Creatinine 0.59, Glucose 117 H, Total Bilirubin 0.7, AST 51 H, ALT 18, Alkaline Phosphatase 178 H, Lipase 34 L 01/14/22 22:29: WBC 12.2 H, Hgb 16.8 H, Hct 50.9 H, Plt Count 177 <Attema,Everette A Tee - Last Filed: 01/15/22 03:30> - Studies Laboratory Data (last 24 hrs) 01/14/22 22:44: Sodium 143, Potassium 2.9 L*, BUN 14, Creatinine 0.59, Glucose 117 H, Total Bilirubin 0.7, AST 51 H, ALT 18, Alkaline Phosphatase 178 H, Lipase 34 L 01/14/22 22:29: WBC 12.2 H, Hgb 16.8 H, Hct 50.9 H, Plt Count 177 Microbiology Data (last 24 hrs): 01/15/22 03:01 Blood - Blood Anaerobic Blood Culture - Final <Brandon Mendez - Last Filed: 01/15/22 15:04> Assessment and Plan - Plan Assessment: Sepsis secondary to right-sided pneumonia Atrial fibrillation on chronic anticoagulation therapy Incidental CT findings concerning for metastatic disease of the liver Diabetes mellitus type [id number]-sfibptpba Hypokalemia Hypothyroidism Hypertension Plan: Sepsis secondary to right-sided pneumonia: Blood cultures obtained, lactic acid within normal limits, no hypotension or other organ dysfunction noted. Continue antibioticsLevaquin incentive [place] provided. Atrial fibrillation on chronic anticoagulation therapy: Continue Xarelto, monitor on telemetry. Continue home medications. Incidental CT findings concerning for metastatic disease of the liver: Discussed with patient at length, she has never had a colonoscopy before, family history of colon cancer, lung cancer. We will obtain ultrasound liver, sent off for CEA/AFP. Patient will need close follow-up at discharge. Diabetes mellitus type [id number]-[id number]-ufbklscma: ACHS Accu-Chek, sliding scale insulin. Hypokalemia: Replaced in ED, protocol in place, check mag level as well. Hypothyroidism: Continue levothyroxine, check thyroid panel this morning. Hypertension: Losartan continued. DVT PPX: Continue Xarelto Code status: Full Discharge Plan: Home Plan to discharge in: 72 Hours - Advance Directives Does patient have a Living Will: No Does patient have a Durable POA for Healthcare: No - Code Status/Comfort Care Code Status Assessed: Yes (Full code) Critical Care: No Time Spent Managing Pts Care (In Minutes): 70 <Everette Astorga - Last Filed: 01/15/22 03:30> Physician Review: Patient Assessed, Agree with Above Assessment and Plan <Brandon Mendez - Last Filed: 01/15/22 15:04>
[2022-01-15] MEDS: Ringers Lactate 1,000 ML IV SCH ×2 (04:41→14:41)
[2022-01-15] MEDS ORDERED: ACETAMINOPHEN 500 MG TAB PO PRN (04:41)
[2022-01-15] MEDS ORDERED: ALBUTEROL 2.5 MG/3 ML NEB SOL NEB PRN (04:41)
[2022-01-15] MEDS ORDERED: ONDANSETRON 4 MG/2 ML VIAL IV PRN (04:41)
[2022-01-15] MEDS ORDERED: GABAPENTIN 100 MG CAP PO PRN (04:41)
[2022-01-15 05:36] LABS: Absolute Lymphocytes (CBC) 1.4 K/uL (0.7-4.9); Lymphocytes % 15.1 % (15.3-44.8); MCV 87.4 fL (80-100); MPV 8.5 fL (7.6-11.3); RBC Red Blood Cell Count 5.15 M/uL (3.86-4.86)
[2022-01-15 06:01] LABS: Albumin 2.2 g/dL (3.4-5.0); Bilirubin Total 0.5 mg/dL (0.2-1.0); Carcinoembryonic Antigen 3.6 ng/mL (0-5.0); Magnesium 1.9 mg/dL (1.8-2.4); Potassium 3.9 mmol/L (3.5-5.1); Protein, Total 5.6 g/dL (6.4-8.2)
[2022-01-15 06:06] LABS: Thyroid Stimulating Hormone 8.19 uIU/mL (0.360-3.740)
[2022-01-15 06:07] LABS: Troponin High Sensitivity 85.1 pg/mL (<58.9)
[2022-01-15] MEDS: PANTOPRAZOLE 40MG TABLET PO SCH (06:30)
[2022-01-15] MEDS: LEVOTHYROXINE SOD 0.1 MG TAB PO SCH (06:30)
[2022-01-15] MEDS: INSULIN -REGULAR HUMAN 50 UNIT/0.5 ML ML SQ SCH ×4 (07:30→21:00)
--- NOTE | 2022-01-15 08:21 | RAD REPORT ---
EXAM DESCRIPTION: US - Liver Only - 01/15/2022 5:18 am CLINICAL HISTORY: ABN CT liver findings. Abdominal pain COMPARISON: Abdomen Pelvis W Contrast dated 01/14/2022 FINDINGS: Multiple hypoechoic masses are present scattered throughout the liver most compatible with metastatic disease.No biliary dilatation seen.Mild ascites. IMPRESSION: Randomly distributed multiple hypoechoic liver masses most compatible with metastatic di sease.
[2022-01-15] MEDS ORDERED: PANTOPRAZOLE 40MG TABLET PO ONE (08:31)
[2022-01-15] MEDS ORDERED: LOSARTAN POTASSIUM 50 MG TABLET ONE (08:31)
[2022-01-15] MEDS ORDERED: DULOXETINE 30 MG CAP PO ONE ×2 (08:31→08:33)
[2022-01-15] MEDS ORDERED: Ringers Lactate 1,000 ML IV ONE ×2 (08:32→18:12)
[2022-01-15] MEDS: DULOXETINE 30 MG CAP PO SCH (08:42)
[2022-01-15] MEDS: LOSARTAN POTASSIUM 50 MG TABLET PO SCH (08:42)
--- NOTE | 2022-01-15 11:33 | RAD REPORT ---
EXAM DESCRIPTION: Abdomen Pelvis W Contrast CLINICAL HISTORY: 61 years Female Abdominal pain, acute, nonlocalized TECHNIQUE: Contiguous axial images obtained through the abdomen and pelvis during and after intraven ous contrast administration. Coronal and sagittal reformatted images provided. This CT exam was performed according to our departmental dose-optimization program, which includes on e or more of the following dose reduction techniques: automated exposure control, adjustment of the m A and/or kV according to patient size, and/or use of iterative reconstruction technique. COMPARISON: No prior exams provided for comparison. FINDINGS: There is a paszf-gl-gytbbkwm layering right pleural effusion. There is a focal right middl e lobe airspace infiltrate. There is right lower lobe atelectasis. There are multiple ill-defined low-attenuation masses scattered throughout the liver, the largest maryellen suring 4.6 x 5.5 x 4.3 in the right lobe. There is a small amount of diffuse peritoneal ascites. Prior cholecystectomy without biliary dilatation. The pancreas, spleen, adrenal glands, kidneys, uter us, ovaries, and urinary bladder demonstrate no acute findings. No abdominal aortic aneurysm. Infrarenal IVC filter. Shotty periaortic lymph nodes. There is no bowel inflammation, obstruction, or free intraperitoneal air. The appendix is normal. Prior infraumbilical ventral abdominal wall hernia repair appears lax with an associated fat-containi ng hernia. IMPRESSION: Small to moderate right pleural effusion. Focal right middle lobe airspace infiltrate. Findings concerning for metastatic disease in the liver. Small amount of peritoneal ascites. No visualized primary neoplasm. Shotty periaortic lymph nodes. Electronically signed by: Marcy Haji MD 01/15/2022 12:49 AM CDT Due to temporary technical issues with the PACS/Fluency reporting system, reports are being signed by the in house radiologists without review as a courtesy to insure prompt reporting. The interpreting radiologist is fully responsible for the content of the report.
--- NOTE | 2022-01-15 11:49 | RAD REPORT ---
EXAM DESCRIPTION: Chest Single View CLINICAL HISTORY: 61 years Female eval for pneumonia COMPARISON: None FINDINGS: Patient is rotated. Lung volumes diminished. Cardiac silhouette is normal. No pneumothorax. Small right-sided effusion. Patchy right basilar airspace disease. No acute bony finding. IMPRESSION: 1. Small right-sided effusion. 2. Patchy right basilar airspace disease. Findings could represent atelectasis versus superimposed infection. Electronically signed by: Tony Trevino MD 01/15/2022 1:31 AM CDT Due to temporary technical issues with the PACS/Fluency reporting system, reports are being signed by the in house radiologists without review as a courtesy to insure prompt reporting. The interpreting radiologist is fully responsible for the content of the report.
[2022-01-15] MEDS: NICOTINE 7 MG/PAT TD SCH (12:00)
[2022-01-15] MEDS ORDERED: RIVAROXABAN 10 MG TABLET PO SCH (17:00)
[2022-01-15] MEDS: RIVAROXABAN 20 MG TABLET PO SCH (17:00)
--- NOTE | 2022-01-15 17:09 | CON ---
History Of Present Illness: This is a 61-year-old female who came into the emergency room with significant past medical history of atrial fibrillation, on Xarelto; hypertension; hypothyroidism; non-insulin dependent diabetes mellitus; obstructive sleep apnea; GERD with midepigastric pain; and shortness of breath. The patient has been taking ibuprofen every night for her knee pain. She has been a smoker of half a pack per day for 40+ years. She was admitted for evaluation of sepsis and pneumonia. Past Medical History: As per HPI. Social History: Tobacco: Positive. Alcohol: Negative. Family History: Noncontributory. Medications: Include Levaquin. See MAR for other medications. Allergies: NO KNOWN DRUG ALLERGIES. Review of Systems: A 10-point review was performed. Physical Examination: General: This is a 61-year-old female, lying in bed, not in any acute cardiopulmonary distress. Currently on 2 L nasal cannula. Vital Signs: Temperature 98.4, pulse 84, respirations 18, blood pressure 151/86. HEENT: Unremarkable. Neck: Supple: Basal crackles, right more than left. Heart: S1, S2. Regular. Abdomen: Soft, nontender. Bowel sounds present. Extremities: Trace edema. Laboratory Data: Shows WBCs 9.1, down from 12.2; hemoglobin 15; platelets are 171. Chemistry shows sodium 142, potassium 3.9, chloride 105, bicarb 37, BUN 12, creatinine 0.6, glucose is 88 with albumin level of 2.2. Blood cultures are pending. Abdomen and pelvis CT shows the patient has small to moderate right pleural effusion, focal right middle lobe airspace infiltrate. Findings consistent of metastatic disease in the liver. A small amount of peritoneal ascites. No visualization of primary neoplasm and shotty periaortic lymph nodes due to temporary technical use with PACS, whole report was not taken. Chest x- ray done today shows that the patient has small right-sided pleural effusion and patchy right basilar airspace disease. Assessment And Plan: A 61-year-old female coming in with epigastric pain and shortness of breath, showing right-sided pleural effusion and right-sided pneumonia with leukocytosis, improving. Currently, patient on Levaquin. Patient also showing metastatic disease with liver spots on CT abdomen and pelvis with longstanding history of tobacco use of half pack per day. The patient's symptoms are improving. Continue current antibiotic pending culture results. Total course of 10 days. Consider getting cancer markers. Consider workup as outpatient with Oncology Team. We will follow the patient closely. Thank you, Dr. Mendez for consult. JOSE/SAGAR Voice ID: [id number] Report ID: [id number] MTDD
[2022-01-15] MEDS ORDERED: RIVAROXABAN 20 MG TABLET PO ONE (18:11)
[2022-01-15] MEDS ORDERED: Levofloxacin500mg IV 500 MG/100 ML BAG IV SCH (21:00)
[2022-01-15 21:10] VITALS: BMI 45.0
[2022-01-16] MEDS: Ringers Lactate 1,000 ML IV SCH ×3 (00:15→10:10)
[2022-01-16] MEDS: PANTOPRAZOLE 40MG TABLET PO SCH (06:11)
[2022-01-16] MEDS: LEVOTHYROXINE SOD 0.1 MG TAB PO SCH (06:11)
[2022-01-16 06:19] LABS: Absolute Lymphocytes (CBC) 1.1 K/uL (0.7-4.9); Hematocrit 42.1 % (36.0-45.0); MCV 86.9 fL (80-100); MPV 8.3 fL (7.6-11.3); RBC Red Blood Cell Count 4.85 M/uL (3.86-4.86)
[2022-01-16 06:45] LABS: Bilirubin Total 0.5 mg/dL (0.2-1.0); Magnesium 1.7 mg/dL (1.8-2.4); Protein, Total 5.2 g/dL (6.4-8.2)
[2022-01-16] MEDS: INSULIN -REGULAR HUMAN 50 UNIT/0.5 ML ML SQ SCH ×3 (07:30→16:30)
[2022-01-16] MEDS ORDERED: MAGNESIUM SULFATE 1 gm IVPB 1 GM/100 ML BAG IV ONE (08:00)
[2022-01-16] MEDS ORDERED: POTASSIUM 25 MEQ EFFERV TAB PO ONE (08:00)
[2022-01-16] MEDS: LOSARTAN POTASSIUM 50 MG TABLET PO SCH (10:10)
[2022-01-16] MEDS: DULOXETINE 30 MG CAP PO SCH (10:10)
[2022-01-16] MEDS: NICOTINE 7 MG/PAT TD SCH (11:37)
[2022-01-16 15:38] VITALS: O2SAT 95
--- NOTE | 2022-01-16 15:39 | P.DS ---
Admission Date: 01/15/22 Discharge Date: 01/16/22 Disposition: ROUTINE DISCHARGE Discharge Condition: GOOD Reason for Admission: Sepsis, pneumonia Hospital Course: DIAGNOSES: # Possible Sepsis secondary to Right-Sided Community Acquired Pneumonia # High Suspicion for Metastatic Cancer (Unknown Primary) with likely Metastatic Lesions to Lungs, Liver, Lymph Nodes # Tobacco Use Disorder # Morbid Obesity - BMI 45.1 kg/m2 # Chronic Atrial Fibrillation on Rivaroxaban # Type II Diabetes Mellitus # Hypertension # Hypothyroidism # Large Umbilical Hernia HOSPITAL COURSE: Ms. Melania Renteria is a pleasant 61 year old female with a past medical history significant for tobacco use disorder, chronic atrial fibrillation, type 2 diabetes mellitus, hypertension, and hypothyroidism who was admitted to the [facility] on 01/15/2022 for midepigastric pain, shortness of breath, and cough. Upon further evaluation, her chest x-ray revealed, "1. Small right-sided effusion. 2. Patchy right basilar airspace disease. Findings could represent atelectasis versus superimposed infection." She was found to meet sepsis criteria so she was treated per sepsis protocol, and she improved significantly over her hospitalization. Incidentally, during her evaluation she had a CT abdomen/pelvis, which revealed, "small to moderate right pleural effusion. Focal right middle lobe airspace infiltrate. Findings concerning for metastatic disease in the liver. Small amount of peritoneal ascites. No visualized primary neoplasm. Shotty periaortic lymph nodes." A follow-up liver ultrasound revealed, "randomly distributed multiple hypoechoic liver masses most compatible with metastatic disease." She has significant risk factors for malignancy particularly her significant tobacco use history. I explained to her that these lesions appear to be metastatic and that possible primary sites include, but are not limited to, colon cancer, breast cancer, lung cancer, endometrial cancer, and ovarian cancer. I stated that, in the hospital, I would only realistically be able to obtain a lung CT and a transvaginal ultrasound. She declined the ultrasound, and deferred to the outpatient setting. We obtained a CT chest which revealed, "moderate layering right pleural effusion. No pneumothorax. Findings consistent with multiple pulmonary, hepatic, and lymph node metastases." I explained these findings to her in detail and recommended that she schedule an outpatient appointment for a mammogram and transvaginal ultrasound with her manager integrity as soon as possible as well as a colonoscopy with her apns as soon as possible. She states that she is feeling much better from a respiratory standpoint and feels ready to go home, which is reasonable. She is breathing comfortably and maintaining adequate pulse oximetry readings on room air. I have also advised that she consider scheduling a General Surgery consultation for her large periumbilical hernia. In regards to her smoking, she was provided with extensive tobacco cessation counseling. I asked if there was anything I could do to help, and she has reques hemant a nicotine patch, which I have prescribed. On 01/16/2022, she was seen on rounds and deemed medically stable for discharge. She was discharged with instructions to schedule follow-up appointments with her PCP (Carola Kirby), her Cryptologic Technician Technical (Dr. Cortez), her Teachers' Assistant (Dr. Posey), and Oncology (Dr. Quach) as soon as possible. I have placed a call out to Dr. Quach, and I am awaiting a call back. She was provided prescriptions for levofloxacin and a nicotine patch. She was given the opportunity to ask questions and reported no further questions. Furthermore, all questions were answered to the best of my ability. Today, I personally spent 40 minutes with her, of which greater than 50% of the time was spent in patient education, counseling, and coordination of care as described above. Vital Signs/Physical Exam: Temp Pulse Resp BP Pulse Ox 97.2 F 68 18 151/93 H 95 01/16/22 12:00 01/16/22 12:00 01/16/22 12:00 01/16/22 12:00 01/16/22 12:00 General: Alert, In no apparent distress, Oriented x3 HEENT: Atraumatic, PERRLA, Mucous membr. moist/pink, EOMI, Sclerae nonicteric Neck: Supple Respiratory: Clear to auscultation bilaterally, Normal air movement Cardiovascular: Regular rate/rhythm, Normal S1 S2, No gallops, No rubs, No murmurs, Edema (1-2+) Gastrointestinal: Normal bowel sounds, Soft and benign, No tenderness, No rebound, No guarding, Other (large reducible umbilical hernia) Musculoskeletal: No clubbing Integumentary: No rashes Neurological: Normal speech, Cranial nerves 3-12 intact, Normal affect Laboratory Data at Discharge: WBC 7.6 K/uL (4.3-10.9) D 01/16/22 05:08 Hgb 13.9 g/dL (12.0-15.0) 01/16/22 05:08 Hct 42.1 % (36.0-45.0) 01/16/22 05:08 Plt Count 154 K/uL (152-406) 01/16/22 05:08 Sodium 142 mmol/L (136-145) 01/16/22 05:08 Potassium 3.0 mmol/L (3.5-5.1) L 01/16/22 05:08 BUN 9 mg/dL (7-18) 01/16/22 05:08 Creatinine 0.46 mg/dL (0.55-1.3) L 01/16/22 05:08 Glucose 88 mg/dL (74-106) 01/16/22 05:08 Magnesium 1.7 mg/dL (1.8-2.4) L 01/16/22 05:08 Total Bilirubin 0.5 mg/dL (0.2-1.0) 01/16/22 05:08 AST 38 U/L (15-37) H 01/16/22 05:08 ALT 16 U/L (12-78) 01/16/22 05:08 Alkaline Phosphatase 131 U/L (45-117) H 01/16/22 05:08 Triglycerides 104 mg/dL (<150) 01/15/22 05:23 Cholesterol 78 mg/dL (<200) 01/15/22 05:23 HDL Cholesterol 37 mg/dL (40-60) L 01/15/22 05:23 Cholesterol/HDL Ratio 2.11 01/15/22 05:23 Lipase 34 U/L (73-393) L 01/14/22 22:44 Home Medications: RX: Duloxetine HCl 60 mg PO DAILY 01/16/22 RX: Gabapentin 1 tab PO TID 01/16/22 RX: Levothyroxine Sodium [Levothyroxine] 1 tab PO DAILY 01/16/22 RX: Losartan Potassium [Cozaar*] 1 tab PO DAILY 01/16/22 RX: Nicotine [Nicoderm*] 7 mg TD DAILY #15 patch 01/16/22 RX: Pantoprazole Sodium 1 tab PO DAILY 01/16/22 RX: Propafenone [Rythmol SR] 1 tab PO BID 01/16/22 RX: Quetiapine [Seroquel*] 50 mg PO BEDTIME 01/16/22 RX: Rivaroxaban [Xarelto] 1 tab PO DAILY AFTER SUPPER 01/16/22 RX: Semaglutide [Rybelsus] 1 tab PO DAILY 01/16/22 levoFLOXacin [Levaquin] 500 mg PO DAILY 5 Days #5 tab 01/16/22 New Medications: levoFLOXacin [Levaquin] 500 mg PO DAILY 5 Days #5 tab RX: Nicotine [Nicoderm*] 7 mg TD DAILY #15 patch Physician Discharge Instructions: As discussed, your evaluation was highly concerning for cancer that has spread. At this time, we do not know what your primary cancer site is. As of now, we have located spots on your lungs, lymph nodes, and liver. Please schedule these appointments SOON POSSIBLE. 1. Please schedule an appointment with your PCP (Carola Kirby NP) 2. Please schedule an appointment with Oncology (Dr. Quach) 3. Please schedule an appointment with Gastroenterology (Dr. Posey) for a colonoscopy 4. Please schedule an appointment with Gynecology (Dr. Cortez) for a mammogram and ultrasound of your uterus and ovaries 5. Please schedule an appointment with General Surgery for evaluation of your abdominal hernia Diet: AHA Activity: Ad amilcar Followup: Tonie Cortez MD [ACTIVE - CAN ADMIT] - (Call to schedule appointment.) Jennifer Mcnulty MD [ACTIVE - CAN ADMIT] - (Call to schedule appointment.) Carlitos Posey MD [ASSOCIATE-ACTIVE - CAN ADMIT] - (Call to schedule ap pointment.) CAROLA KIRBY [Primary Care Provider] - (Call to schedule appointment.)
[2022-01-16 16:20] VITALS: BP 127/74; TEMP 98
[2022-01-16] MEDS: RIVAROXABAN 20 MG TABLET PO SCH (16:50)
--- NOTE | 2022-01-16 18:46 | RAD REPORT ---
EXAM DESCRIPTION: Thorax W/ Con CLINICAL HISTORY: 61 years Female Eval for malignancy/pneumonia/pleural effusion TECHNIQUE: Contiguous axial images obtained through the chest after IV contrast administration. Co iveth and sagittal reformatted images provided. This CT exam was performed according to our departmental dose-optimization program, which includes on e or more of the following dose reduction techniques: automated exposure control, adjustment of the m A and/or kV according to patient size, and/or use of iterative reconstruction technique. COMPARISON: Radiograph obtained earlier the same day FINDINGS: There is a moderate layering right pleural effusion. No left pleural effusion. No pneumoth orax. There are scattered solid pulmonary nodules throughout both lungs, the largest measuring 11 mm in the anterior left lower lobe. The heart is normal in size with trace pericardial fluid. No thoracic aortic aneurysm. There is an en larged paratracheal lymph node measuring 1.7 cm in short axis. Borderline enlarged subcarinal lymph n ode. There are multiple peripherally enhancing masses scattered throughout the liver, the largest visualiz ed measures 2.8 cm and the left lobe. There is upper abdominal free fluid and lymphadenopathy, incomp letely evaluated. No acute fracture or aggressive osseous lesion. Ankylosis of the thoracic spine. Chronic arthrosis of both glenohumeral joints. IMPRESSION: Moderate layering right pleural effusion. No pneumothorax. Findings consistent with multiple pulmonary, hepatic, and lymph node metastases. Electronically signed by: Marcy Haji MD 01/15/2022 11:49 PM CDT Due to temporary technical issues with the PACS/Fluency reporting system, reports are being signed by the in house radiologists without review as a courtesy to insure prompt reporting. The interpreting radiologist is fully responsible for the content of the report.
== END 2022-01-16 17:31 | disposition home or self-care (01) | DRG 871 ==
LOC: ER 21:50 → ERHOLD 01-15 03:14 → 2ND 01-15 19:45
PROVIDERS: ADMIT Internal Medicine; ATTEND Internal Medicine
PROC: 5A09357 Assistance with Respiratory Ventilation, Less than 24 Consecutive Hours, Continuous Positive Airway Pressure (ICD-10-PCS; principal; 2022-01-15)
DX: A41.9 Sepsis, unspecified organism (principal); J18.9 Pneumonia, unspecified organism; C78.00 Secondary malignant neoplasm of unspecified lung; C78.7 Secondary malignant neoplasm of liver and intrahepatic bile duct; C77.9 Secondary and unspecified malignant neoplasm of lymph node, unspecified; Z68.42 Body mass index [BMI] 45.0-49.9, adult; I48.20 Chronic atrial fibrillation, unspecified; E66.01 Morbid (severe) obesity due to excess calories; E11.9 Type 2 diabetes mellitus without complications; I10 Essential (primary) hypertension; E03.9 Hypothyroidism, unspecified; K42.9 Umbilical hernia without obstruction or gangrene; G47.33 Obstructive sleep apnea (adult) (pediatric); E87.6 Hypokalemia; F17.210 Nicotine dependence, cigarettes, uncomplicated; Z79.01 Long term (current) use of anticoagulants; Z20.822 Contact with and (suspected) exposure to COVID-19
CPT/HCPCS: 36415; 71045; 71260; 74177; 76705; 80053; 80061; 82105; 82378; 82947; 83605; 83690; 83735; 83880; 84439; 84443; 84484; 85025; 87040; 94010; 94640; 94660; 96374; 96375; 99285; J2405; J3475; J3480; J7030; J7120; Q9967; U0003

== ENCOUNTER 2022-01-23 20:44 | Emergency (ER) | payer OTHER ==
--- OUTSIDE RECORDS SUMMARY | 2022-01-23 20:47 | XMS REPORT | Continuity of Care Document ---
:1960 Author Organization [facility] t Address [address] [place] [address] Dr. Davis [address] [place] [id number] Care Team Providers Name Role Phone OLIVERIO BLANCAS Attending Clinician Unavailable VERENICE Attending Clinician Unavailable OLIVERIO BLANCAS Attending Clinician Unavailable OLIVERIO BLANCAS Admitting Clinician Unavailable VERENICE Admitting Clinician Unavailable Payers Payer Name Policy Type Policy Number Effective Date Expiration Date S opal MEDICARE A B [id number] 2006 00:00:00 MEDICAID [place] [id number] 2021 00:00:00 MEDICARE PART A [id number] \T\ [id number] - MEDICARE [facility]-MEDICAID - [id number] MEDICAID Problems This patient has no known problems. Allergies, Adverse Reactions, Alerts Allergy Allergy Status Severity Reaction(s) Onset Inactive Treating Comm ents Source Name Type Date Date Clinician NO KNOWN Allergy Active [facility] ALLERGIE S Medications This patient has no known medications. Procedures This patient has no known procedures. Encounters Start End Encounter Admission Attending Care Care Encounter Source Date/Time Date/Time Type Type Clinicians Facility Department ID 2021-09-09 Outpatient ASHWIN BLANCAS Surgery [id number] [facility] 10:58:42 OLIVERIO 2021-12-22 2021-12-22 Outpatient ADALBERTO HINTON [id number] 05:28:00 05:28:00 HN [id number] da [facility] Program 2021-10-08 2021-10-08 Outpatient FELIX CHRISTOPHER [facility] [id number] [facility] 00:00:00 00:00:00 2021-09-18 2021-09-18 Outpatient ASHWIN AGUILERA [facility] [id number] [facility] 00:00:00 23:59:00 OLIVERIO 2021-09-08 2021-09-08 Outpatient JOEL BLANCAS [facility] [id number] [facility] 13:41:44 15:49:12 OLIVERIO garibay of Medicin e Results This patient has no known results.
[2022-01-23 22:02] LABS: Absolute Lymphocytes (CBC) 0.8 K/uL (0.7-4.9); Hematocrit 43.7 % (36.0-45.0); Lymphocytes % 15.3 % (15.3-44.8); MCV 86.7 fL (80-100); MPV 8.8 fL (7.6-11.3); RBC Red Blood Cell Count 5.03 M/uL (3.86-4.86)
[2022-01-23 22:25] LABS: Albumin 2.3 g/dL (3.4-5.0); Bilirubin Total 0.6 mg/dL (0.2-1.0); Potassium 3.3 mmol/L (3.5-5.1); Protein, Total 5.6 g/dL (6.4-8.2)
--- NOTE | 2022-01-23 22:43 | ER ---
Nurse's Notes [facility] Name: Melania Renteria Age: 61 yrs Sex: Female : 1960 Arrival Date: 01/23/2022 Time: 20:46 Bed 7 Private MD: Diagnosis: Hypokalemia Presentation: 01/23 20:46 Chief complaint: EMS states: Pt was here last week with upper abdominal pain and it was kd3 discovered that she had pneumonia so she was admitted. During her stay, it was also discovered that she had metastatic disease of the liver. She was discharged last Tuesday and since then she has been feeling weak and SOB on exertion. Coronavirus screen: Vaccine status: Patient reports receiving the 2nd dose of the covid vaccine. Ebola Screen: No symptoms or risks identified at this time. Initial Sepsis Screen: Does the patient meet any 2 criteria? No. Patient's initial sepsis screen is negative. Does the patient have a suspected source of infection? No. Patient's initial sepsis screen is negative. Risk Assessment: Do you want to hurt yourself or someone else? Patient reports no desire to harm self or others. Onset of symptoms was January 23, 2022. 20:46 Method Of Arrival: EMS: [facility] kd3 20:46 Acuity: SONJA 3 kd3 Triage Assessment: 20:51 General: Appears uncomfortable, Behavior is calm, cooperative. Pain: Denies pain. kd3 Historical: - Allergies: 20:51 PENICILLINS; kd3 - Home Meds: 20:51 duloxetine 60 mg Oral CDRS 1 cap once daily [Active]; ibuprofen 800 mg Oral tab 1 tab 3 kd3 times per day [Active]; losartan 50 mg Oral tab 1 tab once daily [Active]; gabapentin 100 mg Oral cap 1 cap 3 times per day [Active]; levothyroxine 200 mcg cap 1 cap once daily [Active]; quetiapine 50 mg Oral tab 1 tab nightly [Active]; pantoprazole 40 mg Oral TbEC 1 tab once daily [Active]; Rybelsus 7 mg Oral tab 1 tab once daily [Active]; propafenone 225 mg Oral tab 1 tab twice a day [Active]; Xarelto 20 mg Oral tab 1 tab once daily [Active]; - PMHx: 20:51 Arthritis; Depression; diabetes mellitus; Hypothyroidism; Hypertensive disorder; Atrial kd3 fibrillation; - PSHx: 20:51 Cholecystectomy; kd3 - Immunization history:: Adult Immunizations up to date. - Social history:: Smoking status: Patient reports the use of cigarette tobacco products, smokes one-half pack cigarettes per day. Screenin:52 Abuse screen: Denies threats or abuse. Denies injuries from another. Nutritional kd3 screening: No deficits noted. Tuberculosis screening: No symptoms or risk factors identified. Fall Risk IV access (20 points). Gait- Weak (10 pts.). Assessment: 20:52 General: see triage . kd3 20:54 Reassessment: blood sugar en route was 109. kd3 23:06 General: Appears in no apparent distress. Behavior is calm, cooperative. Neuro: Level kd3 of Consciousness is awake, alert, obeys commands, Oriented to person, place, time, situation. 23:37 Reassessment: PT DISCHARGED, WAITING FOR DAUGHTER TO COME PICK HER UP. kd3 Vital Signs: 20:46 Pulse 86; Resp 23; Temp 98.5; Pulse Ox 93% on R/A; Weight 130.18 kg; Height 5 ft. 7 in. kd3 (170.18 cm); 20:59 BP 126 / 84; kd3 23:06 Pulse 92; Resp 18; Pulse Ox 92% on R/A; kd3 20:46 Body Mass Index 44.95 (130.18 kg, 170.18 cm) kd3 ED Course: 20:46 Patient arrived in ED. kd3 20:48 J Luis Osborne DO is Attending Physician. ms3 20:48 [facility] Villavicencio [facility]C [facility] ms3 20:51 Triage completed. kd3 20:51 Arm band placed on right wrist. kd3 20:52 Patient has correct armband on for positive identification. kd3 20:54 Ariane Wilcox, SANTANA is Primary Nurse. kd3 23:05 No provider procedures requiring assistance completed. Patient did not have IV access kd3 during this emergency room visit. Administered Medications: 23:02 Drug: Potassium Chloride 20 mEq Route: PO; as6 23:06 Follow up: Response: No adverse reaction kd3 Medication: 20:52 VIS not applicable for this client. kd3 Outcome: 22:43 Discharge ordered by . snw 23:05 Discharged to home via wheelchair. kd3 23:05 Condition: stable 23:05 Discharge instructions given to patient, Instructed on discharge instructions, follow up and referral plans. Demonstrated understanding of instructions, follow-up care. 01/24 00:20 Patient left the ED. kd3 Signatures: Dorothy Villavicencio, TOP IRONER-C TOP IRONER-Csnw J Luis Osborne DO DO ms3 Jay Graf, RN RN as6 Ariane Wilcox RN RN kd3
--- NOTE | 2022-01-23 22:44 | EDPHYS ---
Physician Documentation [facility] Name: Melania Renteria Age: 61 yrs Sex: Female : 1960 Arrival Date: 01/23/2022 Time: 20:46 Bed 7 Private MD: ED Physician J Luis Osborne HPI: 01/23 21:14 This 61 yrs old Unknown Female presents to ER via EMS with complaints of generalized snw weakness. 21:14 Pt was dx with cancer of unknown site with metastasis last week. She was discharged snw from the hospital with follow up plans. Pt states she is feeling about the same as upon discharge but is generally weak. Pt frustrated that she is not already seeing an oncologist. Onset: The symptoms/episode began/occurred gradually. Severity of symptoms: At their worst the symptoms were very mild. It is unknown whether or not the patient has had similar symptoms in the past. The patient has been recently seen by a physician: The patient has been recently been admitted at [facility], was discharged earlier this week. pt without new s/s. States she is just weak. Lives at home with Spouse. Historical: - Allergies: 20:51 PENICILLINS; kd3 - Home Meds: 20:51 duloxetine 60 mg Oral CDRS 1 cap once daily [Active]; ibuprofen 800 mg Oral tab 1 tab 3 kd3 times per day [Active]; losartan 50 mg Oral tab 1 tab once daily [Active]; gabapentin 100 mg Oral cap 1 cap 3 times per day [Active]; levothyroxine 200 mcg cap 1 cap once daily [Active]; quetiapine 50 mg Oral tab 1 tab nightly [Active]; pantoprazole 40 mg Oral TbEC 1 tab once daily [Active]; Rybelsus 7 mg Oral tab 1 tab once daily [Active]; propafenone 225 mg Oral tab 1 tab twice a day [Active]; Xarelto 20 mg Oral tab 1 tab once daily [Active]; - PMHx: 20:51 Arthritis; Depression; diabetes mellitus; Hypothyroidism; Hypertensive disorder; Atrial kd3 fibrillation; - PSHx: 20:51 Cholecystectomy; kd3 - Immunization history:: Adult Immunizations up to date. - Social history:: Smoking status: Patient reports the use of cigarette tobacco products, smokes one-half pack cigarettes per day. ROS: 21:14 Eyes: Negative for injury, pain, redness, and discharge, ENT: Negative for injury, snw pain, and discharge, Neck: Negative for injury, pain, and swelling, Cardiovascular: Negative for chest pain, palpitations, and edema, Respiratory: Negative for shortness of breath, cough, wheezing, and pleuritic chest pain, Abdomen/GI: Negative for abdominal pain, nausea, vomiting, diarrhea, and constipation, Back: Negative for injury and pain, : Negative for injury, bleeding, discharge, and swelling, MS/Extremity: Negative for injury and deformity, Skin: Negative for injury, rash, and discoloration, Neuro: Negative for headache, weakness, numbness, tingling, and seizure, Psych: Negative for depression, anxiety, suicide ideation, homicidal ideation, and hallucinations. 21:14 Constitutional: Positive for fatigue, malaise. Exam: 21:27 Head/Face: Normocephalic, atraumatic. Eyes: Pupils equal round and reactive to light, snw extra-ocular motions intact. Lids and lashes normal. Conjunctiva and sclera are non-icteric and not injected. Cornea within normal limits. Periorbital areas with no swelling, redness, or edema. ENT: Nares patent. No nasal discharge, no septal abnormalities noted. Tympanic membranes are normal and external auditory canals are clear. Oropharynx with no redness, swelling, or masses, exudates, or evidence of obstruction, uvula midline. Mucous membranes moist. Neck: Trachea midline, no thyromegaly or masses palpated, and no cervical lymphadenopathy. Supple, full range of motion without nuchal rigidity, or vertebral point tenderness. No Meningismus. Chest/axilla: Normal chest wall appearance and motion. Nontender with no deformity. No lesions are appreciated. Cardiovascular: Regular rate and rhythm with a normal S1 and S2. No gallops, murmurs, or rubs. Normal PMI, no JVD. No pulse deficits. Respiratory: Lungs have equal breath sounds bilaterally, clear to auscultation and percussion. No rales, rhonchi or wheezes noted. No increased work of breathing, no retractions or nasal flaring. Abdomen/GI: Soft, non-tender, with normal bowel sounds. No distension or tympany. No guarding or rebound. No evidence of tenderness throughout. Back: No spinal tenderness. No costovertebral tenderness. Full range of motion. MS/ Extremity: Pulses equal, no cyanosis. Neurovascular intact. Full, normal range of motion. Neuro: Awake and alert, GCS 15, oriented to person, place, time, and situation. Cranial nerves II-XII grossly intact. Motor strength 5/5 in all extremities. Sensory grossly intact. Cerebellar exam normal. Normal gait. 21:27 Constitutional: The patient appears alert, awake, obese. 21:27 Skin: Appearance: normal except for affected area, ecchymosis, from previous iv sites/attempts. 21:27 Psych: Behavior/mood is pleasant, cooperative, Oriented to person, place, time. Vital Signs: 20:46 Pulse 86; Resp 23; Temp 98.5; Pulse Ox 93% on R/A; Weight 130.18 kg; Height 5 ft. 7 in. kd3 (170.18 cm); 20:59 BP 126 / 84; kd3 23:06 Pulse 92; Resp 18; Pulse Ox 92% on R/A; kd3 20:46 Body Mass Index 44.95 (130.18 kg, 170.18 cm) kd3 MDM: 20:57 Patient medically screened. snw 21:36 Data reviewed: vital signs, nurses notes. Data interpreted: Pulse oximetry: on room air snw is 93 %. Interpretation: acceptable. Counseling: I had a detailed discussion with the patient and/or guardian regarding: the historical points, exam findings, and any diagnostic results supporting the discharge/admit diagnosis. Special discussion: Based on the history and exam findings, there is no indication for further emergent testing or inpatient evaluation. I discussed with the patient/guardian the need to see the primary care provider for further evaluation of the symptoms. oncology. 01/23 22:00 Order name: Comprehensive Metabolic Panel; Complete Time: 22:28 EDMS 01/23 22:00 Order name: CBC with Automated Diff; Complete Time: 22:13 EDMS EC:50 Rate is 83 beats/min. Rhythm is regular. QRS [place] is Normal. WA interval is normal. QRS snw interval is prolonged. QT interval is normal. Clinical impression: NSR w/ Non-specific ST/T Changes. Administered Medications: 23:02 Drug: Potassium Chloride 20 mEq Route: PO; as6 23:06 Follow up: Response: No adverse reaction kd3 Disposition: 01/24 04:45 Co-signature as Attending Physician, J Luis Osborne DO I was immediately available on-site ms3 in the Emergency Department for consultation in the care of the patient.. Disposition Summary: 01/23/22 22:43 Discharge Ordered Location: Home snw Condition: Stable snw Diagnosis - Hypokalemia snw Followup: snw - With: Emergency Department - When: As needed - Reason: Worsening of condition Followup: snw - With: Private Physician - When: 2 - 3 days - Reason: Recheck today's complaints, Continuance of care, Re-evaluation by your physician Discharge Instructions: - Discharge Summary Sheet snw - Food Choices to Help Relieve Diarrhea, Adult snw - Diarrhea, Adult snw - Potassium Content of Foods snw - Hypokalemia snw Forms: - Medication Reconciliation Form snw - Thank You Letter snw - Antibiotic Education snw - Prescription Opioid Use snw Signatures: Dispatcher [employer] EDMS Dorothy Villavicencio, [employer]-Cs[employer] J Luis Osborne DO DO ms3 Jay Graf, RN RN as6 Ariane Wilcox, RN RN kd3 Corrections: (The following items were deleted from the chart) 01/23 22:09 21:58 CBC+H.LAB.BRZ ordered. EDMS EDMS 22: 21:58 COMPREHENSIVE METABOLIC PANEL+C.LAB.BRZ ordered. EDMS EDMS 22: 21:58 PROTIME (+INR)+COAG.LAB.BRZ ordered. EDMS EDMS
[2022-01-23] MEDS ORDERED: POTASSIUM CL SA 10 MEQ TAB PO ONE (23:05)
[2022-01-24 00:38] VITALS: TEMP 98.5
[2022-01-24 00:40] VITALS: BP 126/84
[2022-01-24 00:42] VITALS: O2SAT 92
--- NOTE | 2022-01-26 08:22 | EKG ---
Test Date: 2022-01-23 Test Time: 20:49:34 Certified Technician: MYLES MEASUREMENT RESULTS: Intervals: Rate: 83 MN: 140 QRSD: 124 QT: 386 QTc: 453 [place]: P: 31 MN: 140 QRS: -64 T: 121 INTERPRETIVE STATEMENTS: Normal sinus rhythm with sinus arrhythmia Left anterior fascicular block Possible Lateral infarct, age undetermined Abnormal ECG Compared to ECG 09/26/2015 17:18:59 Myocardial infarct finding now present Left ventricular hypertrophy no longer present Electronically Signed On 01-26-22 08:12:26 CDT by Justyn Kelly
== END 2022-01-24 00:20 | disposition home or self-care (01) ==
LOC: ER 20:44
DX: E87.6 Hypokalemia (principal); E11.9 Type 2 diabetes mellitus without complications; I10 Essential (primary) hypertension; I48.91 Unspecified atrial fibrillation; E03.9 Hypothyroidism, unspecified; F17.210 Nicotine dependence, cigarettes, uncomplicated; Z79.01 Long term (current) use of anticoagulants; Z88.0 Allergy status to penicillin
CPT/HCPCS: 36415; 80053; 85025; 93005; 99283

== ENCOUNTER 2022-02-07 10:49 | Inpatient (IN) | payer OTHER ==
--- OUTSIDE RECORDS SUMMARY | 2022-02-07 10:52 | XMS REPORT | Continuity of Care Document ---
:1960 Author Organization [facility] t Address [address] [place] [address] [place] [address] Care Team Providers Name Role Phone OLIVERIO ALMANZAR Attending Clinician Unavailable VERENICE Attending Clinician Unavailable Oliverio Almanzar MD Attending Clinician [phone] OLIVERIO ALMANZAR Attending Clinician Unavailable OLIVERIO ALMANZAR Admitting Clinician Unavailable VERENICE Admitting Clinician Unavailable Payers Payer Name Policy Type Policy Number Effective Date Expiration Date S opal MEDICARE A B [id number] 2006 00:00:00 MEDICAID [place] [id number] 2021 00:00:00 MEDICARE PART A [id number] \T\ [id number] - MEDICARE [facility]-MEDICAID - [id number] MEDICAID Problems This patient has no known problems. Allergies, Adverse Reactions, Alerts Allergy Allergy Status Severity Reaction(s) Onset Inactive Treating Comm ents Source Name Type Date Date Clinician NO KNOWN Allergy Active ASHWIN DAS S Social History Social Habit Start Date Stop Date Quantity Comments Source Sex Assigned At [address] [facility] Medications This patient has no known medications. Procedures This patient has no known procedures. Plan of Care Planned Activity Planned Date Details Comments Source Future Scheduled 2022-02-11 INFLUENZA VACCINE (#1) [facility] 00:[facility] [code = INFLUENZA Medical Ce nter VACCINE (#1)] Future Scheduled [address] [facility] 00:00:00 (12+) [code = Medical Center DEPRESSION SCREENING (12+)] Future Scheduled 2009 SHINGLES VACCINES ([address] [facility] 00:00:00 2) [code = SHINGLES [facility] VACCINES (1 of 2)] Future Scheduled 2007-05-[address] [facility] 00:00:00 WELLNESS (YEAR 2 or Medical Center FIRST YEAR if no IPPE) [code = MEDICARE ANNUAL WELLNESS (YEAR 2 or FIRST YEAR if no IPPE)] Future Scheduled 2004 Lipid panel (procedure) [facility] 00:00:00 [code = 83792561] Medical Ce nter Future Scheduled 1980 Screening for malignant [facility] 00:00:00 neoplasm of cervix Medical C enter (procedure) [code = 381630013] Future Scheduled 1978 DTAP/TDAP/TD VACCINES [facility] 00:00:00 (1 - Tdap) [code = Medical C enter DTAP/TDAP/TD VACCINES (1 - Tdap)] Future Scheduled 1977 HEPATITIS C SCREENING [facility] 00:00:00 [code = HEPATITIS C Medical Center SCREENING] Future Scheduled 1960 COVID-19 VACCINE (#1) [facility] 00:00:00 [code = COVID-[address] VACCINE (#1)] Future Scheduled 1959 Screening for malignant [facility] 00:00:00 neoplasm of colon Medical Ce nter (procedure) [code = 430256954] Future Scheduled 1959 Screening for malignant [facility] 00:00:00 neoplasm of colon Medical Ce nter (procedure) [code = 281235822] Future Scheduled 1959 Screening for malignant [facility] 00:00:00 neoplasm of colon Medical Ce nter (procedure) [code = 489356452] Future Scheduled 1959 Screening for malignant [facility] 00:00:00 neoplasm of colon Medical Ce nter (procedure) [code = 536643439] Future Scheduled 1960 Sigmoidoscopy [code = [facility] S[facility]oscopy] Medical Cente r Future Scheduled 1959 Screening for malignant [facility] 00:00:00 neoplasm of breast Medical C enter (procedure) [code = 973012639] Future Scheduled 1960 CT Colonography (combo) [facility] 00:00:00 [code = CT Colonography [facility] (combo)] Encounters Start End Encounter Admission Attending Care Care Encounter Source Date/Time Date/Time Type Type Clinicians Facility Department ID 2021-09-09 Outpatient JENELLE ASHWIN Surgery [id number] [facility] 10:58:42 OLIVERIO 2021-12-22 2021-12-22 Outpatient [facility] [id number] 05:28:00 05:28:00 HN [id number] da [facility] Outre h Program 2021-10-08 2021-10-08 Outpatient FELIX [facility] [id number] [facility] 00:00:00 00:00:00 2021-09-18 2021-09-18 Hospital Jenelle [facility] [id number] 23:59:00 23:59:[address] [facility] 2021-09-18 2021-09-18 Outpatient JENELLE, [facility] [id number] [facility] 00:00:00 23:59:00 OLIVERIO 2021-09-10 2021-09-10 Outside Jenelle [facility] [id number] 00:[facility] 00:00:00 Orders Oliverio lillian [facility] 2021-09-08 2021-09-08 Outpatient JOEL ALMANZAR [facility] [id number] [facility] 13:41:44 15:49:12 OLIVERIO Menard Results This patient has no known results.
[2022-02-07 11:22] LABS: Absolute Lymphocytes (CBC) 0.9 K/uL (0.7-4.9); Hematocrit 44.2 % (36.0-45.0); Lymphocytes % 10.2 % (15.3-44.8); MCV 86.4 fL (80-100); MPV 8.3 fL (7.6-11.3); RBC Red Blood Cell Count 5.12 M/uL (3.86-4.86)
[2022-02-07] MEDS ORDERED: NA CHLORIDE 0.9% 1,000 ML ONE (11:24)
[2022-02-07 11:30] LABS: Protime INR 1.12
[2022-02-07 11:41] LABS: Albumin 2.6 g/dL (3.4-5.0); Bilirubin Direct 0.4 mg/dL (0-0.2); Bilirubin Total 0.9 mg/dL (0.2-1.0); Potassium 3.4 mmol/L (3.5-5.1); Protein, Total 6.6 g/dL (6.4-8.2)
--- NOTE | 2022-02-07 13:18 | RAD REPORT ---
EXAM DESCRIPTION: RAD - Chest Single View - 02/07/2022 1:05 pm CLINICAL HISTORY: COVID +, smoker COMPARISON: Chest Single View dated 01/15/2022; CHEST SINGLE VIEW dated 04/23/2015; CHEST PA AND LAT 2 VIEW dated 02/05/2015; CHEST SINGLE VIEW dated 01/20/2013; Thorax W/ Con dated 01/15/2022 FINDINGS: Lines: None. Lungs: Worsening consolidation in the right mid lung. The left lung is clear. Overall low lung volume s. Pleural: The small right effusion may still be present. Cardiac: The heart size is within normal limits. Bones: No acute fractures. Other: IMPRESSION: Worsening consolidation in the right middle lobe concerning for pneumonia. Small right e ffusion suspected
[2022-02-07] MEDS ORDERED: Levofloxacin 750mg IV 750 MG/150 ML BAG IV ONE (13:51)
--- NOTE | 2022-02-07 13:54 | EDPHYS ---
Physician Documentation [facility] Name: Melania Renteria Age: 61 yrs Sex: Female : 1960 Arrival Date: 02/07/2022 Time: 10:52 Bed 20 Private MD: ED Physician Jeb Duke HPI: 02/07 11:43 This 61 yrs old Unknown Female presents to ER via EMS with complaints of weakness. rn 11:43 Pt reports diagnosed with COVID last week, no appetite, + generalized weakness, nausea. rn Denies sob and chest pain.. Onset: The symptoms/episode began/occurred 1.5 week(s) ago. Severity of symptoms: At their worst the symptoms were moderate in the emergency department the symptoms are unchanged. The patient has not experienced similar symptoms in the past. The patient has not recently seen a physician. Historical: - Allergies: 11:01 PENICILLINS; mb8 - Home Meds: 22:15 propafenone 225 mg Oral tab 1 tab twice a day [Active]; ll3 - PMHx: 11:01 Arthritis; Atrial fibrillation; Depression; diabetes mellitus; Hypertensive disorder; mb8 Hypothyroidism; - PSHx: 11:01 Cholecystectomy; mb8 - Immunization history:: Client reports receiving the 2nd dose of the Covid vaccine. - Social history:: Smoking status: Patient reports the use of cigarette tobacco products. - Family history:: not pertinent. - Hospitalizations: : No recent hospitalization is reported. ROS: 11:43 Constitutional: Negative for fever, chills, and weight loss, Eyes: Negative for injury, rn pain, redness, and discharge, Cardiovascular: Negative for chest pain, palpitations, and edema, Respiratory: Negative for shortness of breath, cough, wheezing, and pleuritic chest pain, Abdomen/GI: Negative for abdominal pain, vomiting, diarrhea, and constipation, Back: Negative for injury and pain, MS/Extremity: Negative for injury and deformity, Skin: Negative for injury, rash, and discoloration, Neuro: Negative for headache, numbness, tingling, and seizure. Exam: 11:43 Constitutional: This is a well developed, well nourished patient who is awake, alert, rn and in no acute distress. Head/Face: Normocephalic, atraumatic. ENT: dry MM Neck: Trachea midline Cardiovascular: Regular rate and rhythm. No pulse deficits. Respiratory: No increased work of breathing, no retractions or nasal flaring. Abdomen/GI: Soft, non-tender Skin: Warm, dry MS/ Extremity: Pulses equal, no cyanosis. Neurovascular intact. Full, normal range of motion. Equal circumference. Neuro: Awake and alert, GCS 15, oriented to person, place, time, and situation. Cranial nerves II-XII grossly intact. Motor strength 4/5 in all extremities. Sensory grossly intact. Vital Signs: 10:59 BP 135 / 87; Pulse 83; Resp 16; Temp 98.1(O); Pulse Ox 94% on R/A; Pain 0/10; mb8 12:29 BP 156 / 93; Pulse 87; Resp 16; Pulse Ox 98% ; mb8 13:30 BP 155 / 93; Pulse 84; Resp 19; Temp 98.7; Pulse Ox 98% on 2 lpm NC; mb8 14:30 BP 154 / 95; Pulse 82; Resp 20; Pulse Ox 97% on 2 lpm NC; mb8 15:00 BP 157 / 98; Pulse 87; Resp 18; Pulse Ox 96% on 2 lpm NC; mb8 MDM: 11:03 Patient medically screened. rn 13:51 Differential Diagnosis pneumonia, dehydration, renal failure. Data reviewed: vital rn signs, nurses notes, lab test result(s), EKG, radiologic studies, plain films, and as a result, I will admit patient. Counseling: I had a detailed discussion with the patient and/or guardian regarding: the historical points, exam findings, and any diagnostic results supporting the discharge/admit diagnosis, lab results, radiology results, the need for further work-up and treatment in the hospital. Response to treatment: There is no appreciated change of the patient's symptoms at this time, and as a result, I will admit patient. Admission orders: after a detailed discussion of the patient's condition and case, the admit orders are written by me. ED course: Pt still reports weakness, tachypnea on monitor, worsening pneumonia on CXR, likely bacterial on top of recent COVID, will admit. . 02/07 11:08 Order name: CBC with Diff; Complete Time: 12:55 rn 02/07 11:08 Order name: Basic Metabolic Panel; Complete Time: 12:55 rn 02/07 11:08 Order name: Protime (+inr); Complete Time: 12:55 rn 02/07 11:08 Order name: Ptt, Activated; Complete Time: 12:55 rn 02/07 11:08 Order name: Urine Microscopic Only; Complete Time: 18:18 rn 02/07 11:08 Order name: BNP; Complete Time: 12:55 rn 02/07 11:09 Order name: LFT's; Complete Time: 12:55 rn 02/07 11:09 Order name: Lipase; Complete Time: 12:55 rn 02/07 13:51 Order name: SARS-COV-2 RT PCR (Document "Date of Onset" if Symptomatic); Complete Time: rn 18:18 02/07 16:59 Order name: Urine Dipstick-Ancillary; Complete Time: 18:18 EDMS 02/07 17:54 Order name: Glucose, Ancillary Testing; Complete Time: 18:18 EDMS 02/07 22:24 Order name: Glucose, Ancillary Testing; Complete Time: 22:49 EDMS 02/08 02:53 Order name: CBC with Automated Diff; Complete Time: 05:16 EDMS 02/08 03:12 Order name: Basic Metabolic Panel; Complete Time: 05:16 EDMS 02/07 11:08 Order name: IV Start; Complete Time: 11:11 rn 02/07 11:08 Order name: EKG; Complete Time: 11:09 rn 02/07 11:08 Order name: EKG - Nurse/Tech; Complete Time: 11:41 rn 02/07 11:08 Order name: XRAY Chest (1 view); Complete Time: 13:34 rn 02/07 11:08 Order name: Urine Dipstick-Ancillary (obtain specimen); Complete Time: 18:29 rn 02/07 11:08 Order name: Cardiac monitoring; Complete Time: 11:13 rn 02/07 11:08 Order name: O2 Sat Monitoring; Complete Time: 11:13 rn 02/08 03:12 Order name: Phosphorus; Complete Time: 05:16 EDMS 02/08 03:12 Order name: Lipid Profile; Complete Time: 05:16 EDMS 02/08 03:12 Order name: Magnesium; Complete Time: 05:16 EDMS 02/08 08:03 Order name: Glucose, Ancillary Testing EDMS 02/08 17:02 Order name: Glucose, Ancillary Testing EDMS Administered Medications: 11:19 Drug: NS 0.9% 1000 ml Route: IV; Rate: 1000 ml; Site: right antecubital; mb8 12:27 Follow up: Response: No adverse reaction; IV Status: Completed infusion mb8 13:46 Drug: LevaQUIN (levofloxacin) 750 mg Volume: 150 ml; Route: IVPB; Infused Over: 90 mb8 mins; Site: right antecubital; 15:08 Follow up: Response: No adverse reaction; IV Status: Completed infusion mb8 Disposition Summary: 02/07/22 13:53 Hospitalization Ordered Hospitalization Status: Inpatient Admission rn Provider: Jeancarlos Bergman rn Condition: Stable rn Problem: new rn Symptoms: have worsened rn Bed/Room Type: Standard rn Location: Telemetry/MedSurg (Inpatient)(02/08/22 18:57) bd Room Assignment: [facility](02/08/22 18:57) bd Diagnosis - Pneumonia, unspecified organism rn - Muscle weakness (generalized) rn - Dehydration rn Forms: - Medication Reconciliation Form rn - SBAR form rn Signatures: Dispatcher [employer] EDMS Marilu Aly bd Norma Wright RN RN mw Jeb Duke MD MD rn Prokisch, Amanda RN RN ap3 Lotus Ricks, RN RN ll3 Chica Luo PA PA sb3 Trace Agustin, RN RN mb8 Corrections: (The following items were deleted from the chart) 19:20 13:53 Telemetry/MedSurg (Inpatient) rn 19:20 13:53 rn mw 02/08 18:57 02/07 19:20 [facility] ER HOLD mw bd 02/08 18:57 02/07 19:20 ERHOLD- mw bd
--- NOTE | 2022-02-07 13:54 | ER ---
Nurse's Notes [facility] Name: Melania Renteria Age: 61 yrs Sex: Female : 1960 Arrival Date: 02/07/2022 Time: 10:52 Bed 20 Private MD: Diagnosis: Pneumonia, unspecified organism;Muscle weakness (generalized);Dehydration Presentation: 02/07 10:59 Chief complaint: Patient states: been covid + for 1 week. c/o n/v and not being able to mb8 eat. Denies any CP or SOB. Coronavirus screen: Vaccine status: Patient reports receiving the 2nd dose of the covid vaccine. nausea, vomiting. Client reports previous positive COVID test result. Ebola Screen: Patient negative for fever greater than or equal to 101.5 degrees Fahrenheit, and additional compatible Ebola Virus Disease symptoms Patient denies exposure to infectious person. Patient denies travel to an Ebola-affected area in the 21 days before illness onset. No symptoms or risks identified at this time. Initial Sepsis Screen: Does the patient meet any 2 criteria? No. Patient's initial sepsis screen is negative. Does the patient have a suspected source of infection? No. Patient's initial sepsis screen is negative. Risk Assessment: Do you want to hurt yourself or someone else? Patient reports no desire to harm self or others. Onset of symptoms is unknown. 10:59 Method Of Arrival: EMS: [facility]8 10:59 Acuity: SONJA 3 mb8 Triage Assessment: 11:01 General: Appears uncomfortable, ill, Behavior is calm, cooperative, appropriate for [facility] age. Pain: Denies pain. Historical: - Allergies: 11:01 PENICILLINS; mb8 - Home Meds: 22:15 propafenone 225 mg Oral tab 1 tab twice a day [Active]; ll3 - PMHx: 11:01 Arthritis; Atrial fibrillation; Depression; diabetes mellitus; Hypertensive disorder; mb8 Hypothyroidism; - PSHx: 11:01 Cholecystectomy; mb8 - Immunization history:: Client reports receiving the 2nd dose of the Covid vaccine. - Social history:: Smoking status: Patient reports the use of cigarette tobacco products. - Family history:: not pertinent. - Hospitalizations: : No recent hospitalization is reported. Screenin:02 Abuse screen: Denies threats or abuse. Denies injuries from another. Nutritional mb8 screening: No deficits noted. Tuberculosis screening: No symptoms or risk factors identified. Fall Risk No fall in past 12 months (0 pts). Secondary diagnosis (15 points) No IV (0 pts). Ambulatory Aid- None/Bed Rest/Nurse Assist (0 pts). Gait- Weak (10 pts.). Mental Status- Oriented to own ability (0 pts). Total Nevarez Fall Scale indicates Low Risk Score (25-44 pts). Fall prevention measures have been instituted. Side Rails Up X 2 Placed close to Nursing Station As available Patient and Family Educated on Fall Prevention Program and strategies. Assessment: 11:01 Pain: Denies pain. Cardiovascular: Denies chest pain, shortness of breath. Respiratory: mb8 No deficits noted. GI: Reports nausea, vomiting. : No deficits noted. 12:29 Reassessment: Patient and/or family updated on plan of care and expected duration. Pain mb8 level reassessed. Patient is alert, oriented x 3, equal unlabored respirations, skin warm/dry/pink. Patient states feeling better. 13:01 Reassessment: Patient feeling slightly better, does not feel the urge to give a UA. mb8 Spoke with doc about a straight cath and he wants to hold off for now and see if patient will hydrate enough to go on her own. Patient agreeable. . 13:02 Reassessment: Patient and/or family updated on plan of care and expected duration. Pain mb8 level reassessed. Patient is alert, oriented x 3, equal unlabored respirations, skin warm/dry/pink. Patient states feeling better. 15:12 Reassessment: Patient and/or family updated on plan of care and expected duration. Pain mb8 level reassessed. Patient is alert, oriented x 3, equal unlabored respirations, skin warm/dry/pink. 02/08 19:58 Reassessment: Patient and/or family updated on plan of care and expected duration. Pain aa9 level reassessed. Reassessment: Nurse Tricia received report. Patient vitals stable, transported via wheelchair on 2L\T\NC to room 418 with tech. Pain: Denies pain. Vital Signs: 02/07 10:59 BP 135 / 87; Pulse 83; Resp 16; Temp 98.1(O); Pulse Ox 94% on R/A; Pain 0/10; mb8 12:29 BP 156 / 93; Pulse 87; Resp 16; Pulse Ox 98% ; mb8 13:30 BP 155 / 93; Pulse 84; Resp 19; Temp 98.7; Pulse Ox 98% on 2 lpm NC; mb8 14:30 BP 154 / 95; Pulse 82; Resp 20; Pulse Ox 97% on 2 lpm NC; mb8 15:00 BP 157 / 98; Pulse 87; Resp 18; Pulse Ox 96% on 2 lpm NC; mb8 ED Course: 10:52 Patient arrived in ED. eb 10:59 Trace Agustin, RN is Primary Nurse. mb8 11:00 Triage completed. mb8 11:01 Arm band placed on. mb8 11:02 Patient has correct armband on for positive identification. Placed in gown. Bed in low mb8 position. Call light in reach. Side rails up X2. Client placed on continuous cardiac and pulse oximetry monitoring. NIBP monitoring applied. 11:02 No provider procedures requiring assistance completed. mb8 11:03 Jeb Duke MD is Attending Physician. rn 11:10 Initial lab(s) drawn, by mo, sent to lab. Inserted saline lock: 20 gauge in right mb8 antecubital area, using aseptic technique. Blood collected. 11:13 BNP Sent. mb8 11:13 Protime (+inr) Sent. mb8 11:13 Ptt, Activated Sent. mb8 11:13 CBC with Diff Sent. mb8 11:13 Basic Metabolic Panel Sent. mb8 13:07 XRAY Chest (1 view) In Process Unspecified. EDMS 13:53 Jeancarlos Bergman is Hospitalizing Provider. rn 02/08 02:59 Patient admitted, IV remains in place. ll3 03:17 Primary Nurse role handed off by Trace Agustin, RN 19:57 Janis Cook, SANTANA is Primary Nurse. aa9 Administered Medications: 02/07 11:19 Drug: NS 0.9% 1000 ml Route: IV; Rate: 1000 ml; Site: right antecubital; mb8 12:27 Follow up: Response: No adverse reaction; IV Status: Completed infusion mb8 13:46 Drug: LevaQUIN (levofloxacin) 750 mg Volume: 150 ml; Route: IVPB; Infused Over: 90 mb8 mins; Site: right antecubital; 15:08 Follow up: Response: No adverse reaction; IV Status: Completed infusion mb8 Medication: 11:02 VIS not applicable for this client. mb8 Outcome: 13:53 Decision to Hospitalize by Provider. rn 02/08 02:59 Admitted to ER Hold. Please see [facility] for further documentation. ll3 Condition: stable Discharge instructions given to patient, Instructed on the need for admit, Demonstrated understanding of instructions. 20:19 Patient left the ED. ld1 Signatures: Dispatcher [employer] EDMS Jeb Duke MD MD rn Prokisch, Amanda RN RN ap3 Jess Emery Lauren, RN RN ld1 Nu Kahn Lynsea RN RN ll3 Janis Cook RN RN aa9 Trace Agustin RN RN mb8
--- NOTE | 2022-02-07 16:36 | P.HP ---
Certification for Inpatient Patient admitted to: Inpatient With expected LOS: >2 Midnights Practitioner: I am a practitioner with admitting privileges, knowledge of patient current condition, hospital course, and medical plan of care. Services: Services provided to patient in accordance with Admission requirements found in Title 42 Section 412.3 of the Code of Federal Regulations Patient History Date of Service: 02/07/22 Reason for admission: Shortness of breath, dry heaving History of Present Illness: 62-year-old man with a history of hypertension, diabetes mellitus, recently diagnosed with liver and lung metastasis, history of ovarian cyst under surveillance presented to the emergency department with a complaint of nausea and vomiting and dry heaving and shortness of breath. She reported poor oral intake due to her dry heaving. Patient also report generalized weakness. She is currently able to ambulate with a walker. She tested positive for COVID-19 about a week ago when she followed up with a PCP regarding the lung and liver metastasis. She has not undergone any follow-up to identify primary malignancy site. Checks x-ray done in the emergency department shows worsening right-sided pneumonia. Patient is not hypoxic on room air. She does not meet criteria for sepsis. Patient is hospitalized for further management. Allergies Penicillins Allergy (Verified 01/15/22 20:59) Nausea/Vomiting Home Medications: Duloxetine HCl 60 mg PO DAILY 01/16/22 Gabapentin 1 tab PO TID 01/16/22 Levothyroxine Sodium [Levothyroxine] 1 tab PO DAILY 01/16/22 Losartan Potassium [Cozaar*] 1 tab PO DAILY 01/16/22 Nicotine [Nicoderm*] 7 mg TD DAILY #15 patch 01/16/22 Pantoprazole Sodium 1 tab PO DAILY 01/16/22 Propafenone [Rythmol SR] 1 tab PO BID 01/16/22 Quetiapine [Seroquel*] 50 mg PO BEDTIME 01/16/22 Rivaroxaban [Xarelto] 1 tab PO DAILY AFTER SUPPER 01/16/22 Semaglutide [Rybelsus] 1 tab PO DAILY 01/16/22 levoFLOXacin [Levaquin] 500 mg PO DAILY 5 Days #5 tab 01/16/22 - Past Medical/Surgical History Diabetic: Yes -: [id number] diabetes -: Atrial fibrillation on chronic anticoagulation -: Hypertension -: Hypothyroidism -: GERD -: CHEVY with cpap at home -: Arthritis -: hemorrhoids -: -: Cholecystectomy -: Lap band with reversal Psychosocial/ Personal History: 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 - Family History Father -: Cancer Mother -: Cancer Brother -: Cancer - Social History Smoking Status: Current every day smoker Alcohol use: No CD- Drugs: No Caffeine use: Yes Review of Systems Other: Patient denied any fever, denied any cough or sputum production. She denied any chest pain. Except as documented, all other systems reviewed and negative. Physical Examination - Physical Exam General: Alert, In no apparent distress, Oriented x3, Obese HEENT: Mucous membr. moist/pink, Sclerae nonicteric Neck: Supple, JVD not distended Respiratory: Diminished (On the right), Other (No crackles or rhonchi.) Cardiovascular: No edema, Regular rate/rhythm, Normal S1 S2, No murmurs Gastrointestinal: Normal bowel sounds, Soft and benign, Non-distended Musculoskeletal: No swelling, No tenderness Integumentary: No rashes, No erythema, No cyanosis Neurological: Normal speech, Normal strength at 5/5 x4 extr, Cranial nerves 3-12 intact Lymphatics: No axilla or inguinal lymphadenopathy - Studies Laboratory Data (last 24 hrs) 02/07/22 11:13: PT 12.4, INR 1.12, APTT 31.5 02/07/22 11:13: Sodium 141, Potassium 3.4 L, BUN 16, Creatinine 0.66, Glucose 103, Total Bilirubin 0.9, AST 84 H, ALT 59, Alkaline Phosphatase 189 H, Lipase 44 L 02/07/22 11:13: WBC 8.90, Hgb 14.9, Hct 44.2, Plt Count 166 Assessment and Plan - Problems (Diagnosis) (1) Pneumonia Current Visit: Yes Status: Acute (2) Liver metastasis Current Visit: Yes Status: Acute (3) Pulmonary metastasis Current Visit: Yes Status: Acute (4) Diabetes mellitus type 2 in obese Current Visit: Yes Status: Acute (5) Impaired mobility Current Visit: Yes Status: Acute (6) Nausea and vomiting Current Visit: Yes Status: Acute (7) Obesity Current Visit: Yes Status: Acute (8) COVID-19 virus infection Current Visit: Yes Status: Acute - Plan Admit patient to the medical floor. Suspect bacterial pneumonia. Pneumonia distribution atypical of COVID-19. Aggressive antibiotic therapy-IV Levaquin and vancomycin Chest physiotherapy. I suspect patient nausea and vomiting related to metastatic cancer Supportive measures for nausea and vomiting-Zofran as needed. 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 She did a pelvic ultrasound which demonstrated multiple ovarian cyst and an ovarian mass which is growing. We will attempt to retrieve medical records from her supervisor [facility]. Insulin sliding scale for glucose management. PT consult. - Advance Directives Does patient have a Living Will: No Does patient have a Durable POA for Healthcare: No
[2022-02-07 16:59] LABS: Urine Blood Negative (Negative); Urine Glucose Negative (Negative); Urine Protein 1+ (Negative); Urine Specific Gravity >=1.030 (1.005-1.030); Urine pH 6.5 (5.0-7.0)
[2022-02-07] MEDS ORDERED: ALBUTEROL 2.5 MG/3 ML NEB SOL NEB PRN (17:10)
[2022-02-07] MEDS: D5 0.9 NS 1,000 ML IV SCH (17:10)
[2022-02-07] MEDS: INSULIN -REGULAR HUMAN 50 UNIT/0.5 ML ML SQ SCH ×2 (17:10→21:00)
[2022-02-07] MEDS ORDERED: ONDANSETRON 4 MG/2 ML VIAL IV PRN (17:10)
[2022-02-07] MEDS ORDERED: ACETAMINOPHEN 500 MG TAB PO PRN (17:10)
[2022-02-07] MEDS: HEPARIN 5000 UNIT/ML 1 ML VIAL SQ SCH (17:10)
[2022-02-07 17:23] LABS: Urine Bacteria >50 /HPF (<20); Urine Mucus 4+ /HPF (None Seen); Urine RBC <5 /HPF (None Seen)
[2022-02-07] MEDS ORDERED: HEPARIN 5000 UNIT/ML 1 ML VIAL ONE (17:53)
[2022-02-07] MEDS ORDERED: D5 0.9 NS 1,000 ML IV ONE (17:53)
[2022-02-07] MEDS: IPRATROPIUM BROM 0.5MG/2.5ML NEB SCH ×2 (19:25→23:00)
[2022-02-07] MEDS ORDERED: IPRATROPIUM BROM 0.5MG/2.5ML ONE ×2 (19:34→22:57)
[2022-02-07] MEDS ORDERED: VANCOMYCIN 1 GM/VIAL ONE (20:10)
[2022-02-07] MEDS ORDERED: NA CHLORIDE 0.9% 500 ML ONE (20:10)
[2022-02-07] MEDS: VANCOMYCIN 2 GM in NA CHLORIDE 0.9% 500 ML IVPB SCH (20:30)
[2022-02-07] MEDS ORDERED: VANCOMYCIN 1.25 GM in NA CHLORIDE 0.9% 250 ML IVPB SCH (21:00)
[2022-02-07] MEDS: GABAPENTIN 100 MG CAP PO SCH (21:00)
[2022-02-07] MEDS: QUETIAPINE 25 MG TAB PO SCH (21:00)
[2022-02-07] MEDS ORDERED: FAMOTIDINE 20 MG TAB ONE (22:55)
[2022-02-07] MEDS ORDERED: ONDANSETRON 4 MG/2 ML VIAL ONE (22:55)
[2022-02-07] MEDS ORDERED: GABAPENTIN 100 MG CAP ONE (23:02)
[2022-02-07] MEDS ORDERED: QUETIAPINE 25 MG TAB ONE (23:02)
[2022-02-07] MEDS ORDERED: PROPAFENONE HCL 150 MG TAB ONE (23:17)
[2022-02-07] MEDS: FAMOTIDINE 20 MG TAB PO ONE (23:20)
[2022-02-08 00:11] VITALS: BMI 44.9
[2022-02-08] MEDS: HEPARIN 5000 UNIT/ML 1 ML VIAL SQ SCH ×3 (01:00→17:00)
[2022-02-08] MEDS ORDERED: HEPARIN 5000 UNIT/ML 1 ML VIAL ONE ×3 (01:24→17:09)
[2022-02-08 02:45] LABS: Absolute Lymphocytes (CBC) 0.9 K/uL (0.7-4.9); Hematocrit 39.1 % (36.0-45.0); Lymphocytes % 12.5 % (15.3-44.8); MCV 87.7 fL (80-100); MPV 8.4 fL (7.6-11.3); RBC Red Blood Cell Count 4.46 M/uL (3.86-4.86)
[2022-02-08] MEDS: D5 0.9 NS 1,000 ML IV SCH ×2 (03:10→13:10)
[2022-02-08 03:11] LABS: Magnesium 1.9 mg/dL (1.8-2.4); Phosphorus 2.7 mg/dL (2.5-4.9); Potassium 3.1 mmol/L (3.5-5.1)
[2022-02-08] MEDS: IPRATROPIUM BROM 0.5MG/2.5ML NEB SCH ×5 (03:20→19:25)
[2022-02-08] MEDS ORDERED: IPRATROPIUM BROM 0.5MG/2.5ML ONE ×5 (03:30→19:33)
[2022-02-08] MEDS ORDERED: D5 0.9 NS 0 ML IV ONE (03:38)
[2022-02-08] MEDS: INSULIN -REGULAR HUMAN 50 UNIT/0.5 ML ML SQ SCH ×4 (07:30→20:42)
[2022-02-08] MEDS ORDERED: PANTOPRAZOLE 40MG TABLET PO ONE (08:07)
[2022-02-08] MEDS ORDERED: DULOXETINE 30 MG CAP PO ONE (08:07)
[2022-02-08] MEDS: VANCOMYCIN 2 GM in NA CHLORIDE 0.9% 500 ML IVPB SCH ×2 (08:41→21:55)
[2022-02-08] MEDS: LEVOTHYROXINE SODIUM 200 MCG PO SCH (08:56)
[2022-02-08] MEDS: GABAPENTIN 100 MG CAP PO SCH ×3 (08:56→20:41)
[2022-02-08] MEDS: DULOXETINE HCL 60 MG PO SCH (09:00)
[2022-02-08] MEDS: PANTOPRAZOLE 40MG TABLET PO SCH (09:00)
--- NOTE | 2022-02-08 10:22 | EKG ---
Test Date: 2022-02-07 Test Time: 11:29:40 Multi Needle Machine Operator: KIKI MEASUREMENT RESULTS: Intervals: Rate: 82 AK: 136 QRSD: 122 QT: 382 QTc: 446 Casey: P: 28 AK: 136 QRS: -23 T: 149 INTERPRETIVE STATEMENTS: Normal sinus rhythm Septal infarct, age undetermined ST & T wave abnormality, consider lateral ischemia Abnormal ECG Compared to ECG 01/23/2022 20:49:34 ST (T wave) deviation now present Possible ischemia now present Sinus arrhythmia no longer present Left anterior fascicular block no longer present Myocardial infarct finding still present Electronically Signed On 02-08-22 10:20:06 CDT by Jsutyn Kelly
[2022-02-08] MEDS: Levofloxacin 750mg IV 750 MG/150 ML BAG IV SCH (13:09)
[2022-02-08] MEDS ORDERED: Levofloxacin 750mg IV 750 MG/150 ML BAG IV ONE (13:11)
[2022-02-08] MEDS ORDERED: D5W 1,000 ML IV ONE (13:11)
[2022-02-08] MEDS ORDERED: D5 0.9 NS 1,000 ML IV ONE (13:21)
--- NOTE | 2022-02-08 17:32 | P.PN ---
Subjective Date of Service: 02/08/22 Chief Complaint: Shortness of breath, dry heaving Patient states she feels much better today. She is now tolerating room air. Her repeat COVID test is negative. Physical Examination - Vital Signs Temperature: 97.6 F Blood Pressure: 112/85 Pulse: 81 Respirations: 17 Pulse Ox (%): 100 Assessment And Plan - Current Problems (Diagnosis) (1) Pneumonia Current Visit: Yes Status: Acute (2) Liver metastasis Current Visit: Yes Status: Acute (3) Pulmonary metastasis Current Visit: Yes Status: Acute (4) Diabetes mellitus type 2 in obese Current Visit: Yes Status: Acute (5) Impaired mobility Current Visit: Yes Status: Acute (6) Nausea and vomiting Current Visit: Yes Status: Acute (7) Obesity Current Visit: Yes Status: Acute (8) COVID-19 virus infection Current Visit: Yes Status: Acute - Plan Physical Exam General: Alert, In no apparent distress, Oriented x3, Obese Neck: JVD not distended Respiratory: Diminished On the right, No crackles or rhonchi. Cardiovascular: No edema, Regular rate/rhythm, Normal S1 S2, No murmurs Gastrointestinal: Normal bowel sounds, Soft and benign, Non-distended Musculoskeletal: No swelling, No tenderness Integumentary: No erythema, No cyanosis Neurological:Normal strength at 5/5 x4 extr. Plan: Continue aggressive antibiotic therapy for bacterial pneumonia. Patient stable on room air at rest but desaturates with activity. Oxygen therapy as needed. COVID-19 screen is now negative. Chest physiotherapy. I suspect patient nausea and vomiting related to metastatic cancer Supportive measures for nausea and vomiting-Zofran as needed. 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 She did a pelvic ultrasound which demonstrated multiple ovarian cyst and an ovarian mass which is growing. Patient will need biopsy of the liver metastasis. Need to discuss with radiology if percutaneous biopsy is possible Insulin sliding scale for glucose management. Patient is needing significant assistance with mobility. Continue PT. May need to disposition to skilled rehab.
[2022-02-08] MEDS: QUETIAPINE 25 MG TAB PO SCH (20:41)
--- NOTE | 2022-02-08 20:46 | P.PN ---
Date of Service: 02/09/22 Subjective: feels slightly better breathing more comfortably no new / worsening symptoms still requiring O2 supplementation ROS: 10 point ROS as noted above, otherwise negative Physical Exam: Gen: NAD, AOx3 HEENT: normal conjunctiva, sclera anicteric CV: regular rate & rhythm, no edema Pulm: non-labored respirations at rest on 2L NC; diminished bilaterally, R>L with crackles Abd: soft, non-tender, non-distended Neuro: normal speech, normal affect, moves all extremities vitals reviewed Problem List Right-sided pneumonia recent COVID-19 infection Pulmonary and liver metastatic disease; unknown primary DM2 obesity GERD, chronic Right-sided pneumonia recent COVID-19 infection pulmonology consulted Continue aggressive antibiotic therapy for bacterial pneumonia. Levaquin & Vanc alternates on room air and 2 L NC Oxygen therapy as needed. COVID-19 screen is now negative. was positive ~1 week prior to admission Chest physiotherapy. nebs Pulmonary and liver metastatic disease; unknown primary Patient was supposed to f/u with PCP/HAUNTED HISTORY TOUR GUIDE/GI for arrangement for pelvic U/S, colonoscopy, but she has not been able to follow-up because she tested positive for COVID-19 after discharge from hospital. Pelvic ultrasound which demonstrated multiple ovarian cyst and an ovarian mass which is growing. suspect n/v related to metastatic cancer, possible pneumonia zofran as needed Patient will need biopsy of the liver metastasis. percutaneous biopsy ordered, tentative for tomorrow DM2 GERD, chronic Insulin sliding scale for glucose management. continue home PPI Patient is needing assistance with mobility, but improving Continue PT. May need disposition to skilled rehab vs home health VTE: held for possible biopsy Code: Full Dispo: home vs SNF ~2 days Time Spent Managing Pts Care (In Minutes): 35
[2022-02-08] MEDS: FAMOTIDINE 20 MG TAB PO ONE (21:54)
[2022-02-08] MEDS ORDERED: PROPAFENONE HCL 150 MG TAB PO ONE (22:19)
[2022-02-09] MEDS: IPRATROPIUM BROM 0.5MG/2.5ML NEB SCH ×6 (00:40→19:45)
[2022-02-09] MEDS: HEPARIN 5000 UNIT/ML 1 ML VIAL SQ SCH ×3 (01:00→18:11)
[2022-02-09] MEDS: D5 0.9 NS 1,000 ML IV SCH ×2 (01:42→09:10)
[2022-02-09 05:37] LABS: Hematocrit 36.4 % (36.0-45.0); Lymphocytes % 15.7 % (15.3-44.8); MCV 88.2 fL (80-100); MPV 8.4 fL (7.6-11.3); RBC Red Blood Cell Count 4.12 M/uL (3.86-4.86)
[2022-02-09 05:42] LABS: Protime INR 1.16
[2022-02-09 06:17] LABS: Albumin 1.9 g/dL (3.4-5.0); Bilirubin Total 0.5 mg/dL (0.2-1.0); Magnesium 1.9 mg/dL (1.8-2.4); Phosphorus 2.7 mg/dL (2.5-4.9)
[2022-02-09 06:20] LABS: Potassium 2.8 mmol/L (3.5-5.1)
[2022-02-09] MEDS: INSULIN -REGULAR HUMAN 50 UNIT/0.5 ML ML SQ SCH ×4 (07:30→21:00)
[2022-02-09] MEDS: VANCOMYCIN 2 GM in NA CHLORIDE 0.9% 500 ML IVPB SCH (09:00)
[2022-02-09] MEDS: LEVOTHYROXINE SODIUM 200 MCG PO SCH (09:00)
[2022-02-09] MEDS: DULOXETINE HCL 60 MG PO SCH (09:00)
[2022-02-09] MEDS: KCL 20 MEQ/100 mL IVPB 20 MEQ/100 ML BAG IV SCH ×2 (09:00→09:13)
[2022-02-09] MEDS: PANTOPRAZOLE 40MG TABLET PO SCH (10:24)
[2022-02-09] MEDS: GABAPENTIN 100 MG CAP PO SCH ×3 (10:24→22:21)
[2022-02-09] MEDS ORDERED: POTASSIUM CL 40 MEQ in NA CHLORIDE 0.9% 500 ML IV ONE (10:30)
[2022-02-09 12:02] LABS: Blood Morphology Comment NOT SEEN (NOT SEEN); Platelet Estimate DECR
[2022-02-09] MEDS: Levofloxacin 750mg IV 750 MG/150 ML BAG IV SCH (14:20)
[2022-02-09] MEDS ORDERED: ALBUTEROL 2.5 MG/3 ML NEB SOL NEB PRN (15:00)
[2022-02-09] MEDS ORDERED: VANCOMYCIN 2 GM in NA CHLORIDE 0.9% 500 ML IVPB SCH (21:00)
[2022-02-09] MEDS: QUETIAPINE 25 MG TAB PO SCH (22:21)
[2022-02-10] MEDS: HEPARIN 5000 UNIT/ML 1 ML VIAL SQ SCH ×3 (01:00→17:39)
[2022-02-10] MEDS: IPRATROPIUM BROM 0.5MG/2.5ML NEB SCH ×3 (02:15→13:55)
[2022-02-10 03:58] LABS: Absolute Lymphocytes (CBC) 1.2 K/uL (0.7-4.9); Hematocrit 37.4 % (36.0-45.0); Lymphocytes % 16.8 % (15.3-44.8); MCV 87.9 fL (80-100); MPV 8.2 fL (7.6-11.3); RBC Red Blood Cell Count 4.25 M/uL (3.86-4.86)
[2022-02-10 04:17] LABS: Bilirubin Total 0.5 mg/dL (0.2-1.0); Magnesium 1.9 mg/dL (1.8-2.4); Potassium 3.7 mmol/L (3.5-5.1); Protein, Total 5.3 g/dL (6.4-8.2)
--- NOTE | 2022-02-10 06:35 | P.PN ---
Date of Service: 02/10/22 Subjective: feels ok, breathing slightly better, still on O2, 1-2L NC to maintain >92% SpO2 no new complaints/symptoms ROS: 10 point ROS as noted above, otherwise negative Physical Exam: Gen: NAD, AOx3 HEENT: normal conjunctiva, sclera anicteric CV: regular rate & rhythm, no edema Pulm: non-labored respirations at rest on 2L NC; diminished bilaterally at bases Abd: soft, non-tender, non-distended Neuro: normal speech, normal affect, moves all extremities equally vitals reviewed Problem List Right-sided pneumonia bilateral pleural effusions recent COVID-19 infection Pulmonary and liver metastatic disease; unknown primary DM2 obesity GERD, chronic Right-sided pneumonia recent COVID-19 infection pulmonology consulted continue levaquin, vanc discontinued. cultures negative with bilateral pleural effusions, suspect secondary to suspected metastatic disease on 2L NC CXR today, possibly increased effusions COVID-19 screen is now negative. was positive ~1 week prior to admission Chest physiotherapy. nebs PRN Pulmonary and liver metastatic disease; unknown primary Patient was supposed to f/u with PCP/GASTROENTEROLOGIST/GI for arrangement for pelvic U/S, colonoscopy, but she has not been able to follow-up because she tested positive for COVID-19 after discharge from hospital. Pelvic ultrasound which demonstrated multiple ovarian cyst and an ovarian mass which is growing. suspect n/v related to metastatic cancer, possible pneumonia zofran as needed Patient will need biopsy of the liver metastasis. percutaneous biopsy ordered for today DM2 GERD, chronic Insulin sliding scale for glucose management. continue home PPI Patient is needing assistance with mobility, but improving Continue PT. VTE: held for biopsy today Code: Full Dispo: home health / PT ~1-2 days weaning O2 Time Spent Managing Pts Care (In Minutes): 35
[2022-02-10] MEDS ORDERED: POTASSIUM 25 MEQ EFFERV TAB PO ONE (06:50)
[2022-02-10] MEDS: INSULIN -REGULAR HUMAN 50 UNIT/0.5 ML ML SQ SCH ×4 (07:30→21:00)
--- NOTE | 2022-02-10 08:24 | P.CNS ---
Date of Consult: 02/10/22 Chief Complaint: Shortness of breath, dry heaving History of Present Illness: Patient is 62 years of age with a history of diabetes hypertension and the liver metastases scented with nausea vomiting shortness of breath poor oral intake tested positive for COVID about a week ago admitted for pneumonia Allergies Penicillins Allergy (Verified 01/15/22 20:59) Nausea/Vomiting Home Medications: Duloxetine HCl 60 mg PO DAILY 01/16/22 Gabapentin 1 tab PO TID 01/16/22 Levothyroxine Sodium [Levothyroxine] 1 tab PO DAILY 01/16/22 Losartan Potassium [Cozaar*] 1 tab PO DAILY 01/16/22 Nicotine [Nicoderm*] 7 mg TD DAILY #15 patch 01/16/22 Pantoprazole Sodium 1 tab PO DAILY 01/16/22 Propafenone [Rythmol SR] 1 tab PO BID 01/16/22 Quetiapine [Seroquel*] 50 mg PO BEDTIME 01/16/22 Rivaroxaban [Xarelto] 1 tab PO DAILY AFTER SUPPER 01/16/22 Semaglutide [Rybelsus] 1 tab PO DAILY 01/16/22 Albuterol Neb [Proventil 0.083% Neb Soln] 2.5 mg NEB Q8HR 30 Days #90 amp 02/11/22 Spironolactone [Aldactone*] 25 mg PO DAILY 30 Days #30 tab 02/11/22 levoFLOXacin [Levaquin] 750 mg PO DAILY 4 Days #4 tab 02/11/22 predniSONE [Prednisone*] 20 mg PO DAILY 4 Days #5 tab 02/11/22 - Past Medical/Surgical History Diabetic: Yes -: [id number] diabetes -: Atrial fibrillation on chronic anticoagulation -: Hypertension -: Hypothyroidism -: GERD -: CHEVY with cpap at home -: Arthritis -: hemorrhoids -: -: Cholecystectomy -: Lap band with reversal Psychosocial/ Personal History: 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 - Family History Father Medical History: Cancer Mother Medical History: Cancer Brother Medical History: Cancer - Social History Smoking Status: Current every day smoker Alcohol use: No CD- Drugs: No Caffeine use: Yes Physical Examination Temp Pulse Resp BP Pulse Ox 97.1 F 66 16 117/82 100 02/10/22 04:00 02/10/22 04:00 02/10/22 04:00 02/10/22 04:00 02/10/22 04:00 General: Alert, Disheveled Respiratory: Diminished Cardiovascular: No edema, Regular rate/rhythm - Problems (1) Pleural effusion Status: Acute Plan: Patient is 61 years of age has presumed metastatic disease also has had biopsy done of her liver he has a right-sided pleural effusion COVID-positive chemistries reviewed white count is normal patient to follow-up with me will decide what to do about the pleural effusion may be related to the malignancy patient is oxygenation is satisfactory she does have a history of sleep apnea and uses CPAP at home vital signs stable
[2022-02-10] MEDS: LEVOTHYROXINE SODIUM 200 MCG PO SCH (09:00)
[2022-02-10] MEDS: GABAPENTIN 100 MG CAP PO SCH ×3 (09:00→22:15)
[2022-02-10] MEDS: PANTOPRAZOLE 40MG TABLET PO SCH (09:00)
[2022-02-10] MEDS: DULOXETINE HCL 60 MG PO SCH (09:00)
--- NOTE | 2022-02-10 09:54 | RAD REPORT ---
EXAM DESCRIPTION: RAD - Chest Single View - 02/10/2022 6:58 am CLINICAL HISTORY: f/u pneumonia Chest pain. COMPARISON: Chest Single View dated 02/07/2022; Chest Single View dated 01/15/2022; CHEST SINGLE VIEW d ated 04/23/2015; CHEST PA AND LAT 2 VIEW dated 02/05/2015; Thorax W/ Con dated 01/15/2022; Liver Only da hemant 01/15/2022; Abdomen Pelvis W Contrast dated 01/14/2022 FINDINGS: Portable technique limits examination quality. Moderate bilateral pulmonary opacities are again seen, mildly progressive since comparative study. Mo derate bilateral pleural effusions. The heart is mildly enlarged in size.
[2022-02-10] MEDS ORDERED: MIDAZOLAM HCL 2 MG/2 ML INJ ONE (10:41)
[2022-02-10] MEDS ORDERED: FENTANYL CITR 100 MCG/2 ML ONE (10:41)
[2022-02-10] MEDS ORDERED: NA CHLORIDE 0.9% 500 ML ONE (11:09)
--- NOTE | 2022-02-10 12:35 | RAD REPORT ---
EXAM DESCRIPTION: US - Liver Biopsy Procedure - 02/10/2022 12:19 pm CLINICAL HISTORY: Liver metastasis Multiple liver masses COMPARISON: No comparisons FINDINGS: Preoperative diagnosis: Liver masses. Post operative diagnosis: Same. Conscious Sedation: 45 minutes of monitored IV conscious sedation utilizing fentanyl and midazolam. Fluoroscopy time: None Contrast used: None Estimated blood loss: Minimal Specimens:2 x 18 core biopsy specimens The right upper quadrant was prepped and draped in the usual sterile fashion. 1% lidocaine was infilt rated into the subcutaneous tissues for local anesthesia. Real time ultrasound scanning of the liver demonstrated several hypoechoic masses. Under ultrasound guidance, using a 18-gauge, 15 cm long, 2 cm throw core biopsy gun, 2 specimens were obtained of the dominant sized mass and sent to pathology fo r evaluation. There were no complications. IMPRESSION: Successful ultrasound-guided core biopsy of suspicious right lobe liver mass. 45 minutes of IV conscious sedation was utilized.
[2022-02-10] MEDS ORDERED: IPRATROPIUM BROM 0.5MG/2.5ML NEB PRN (14:53)
[2022-02-10] MEDS: Levofloxacin 750mg IV 750 MG/150 ML BAG IV SCH (15:51)
[2022-02-10] MEDS ORDERED: FUROSEMIDE 20 MG/ 2ML VIAL IV ONE (17:30)
[2022-02-10] MEDS: QUETIAPINE 25 MG TAB PO SCH (22:15)
[2022-02-11] MEDS: HEPARIN 5000 UNIT/ML 1 ML VIAL SQ SCH ×2 (00:43→08:39)
[2022-02-11 06:21] LABS: Bilirubin Total 0.4 mg/dL (0.2-1.0); Magnesium 1.9 mg/dL (1.8-2.4); Protein, Total 5.4 g/dL (6.4-8.2)
[2022-02-11] MEDS: INSULIN -REGULAR HUMAN 50 UNIT/0.5 ML ML SQ SCH ×2 (07:30→11:30)
[2022-02-11] MEDS ORDERED: POTASSIUM 25 MEQ EFFERV TAB PO ONE (08:00)
[2022-02-11] MEDS: GABAPENTIN 100 MG CAP PO SCH ×2 (08:33→14:00)
[2022-02-11] MEDS: PANTOPRAZOLE 40MG TABLET PO SCH (08:33)
[2022-02-11] MEDS: DULOXETINE HCL 60 MG PO SCH (08:35)
[2022-02-11] MEDS: LEVOTHYROXINE SODIUM 200 MCG PO SCH (08:39)
--- NOTE | 2022-02-11 10:05 | RAD REPORT ---
EXAM DESCRIPTION: RAD - Chest Pa And Lat (2 Views) - 02/11/2022 9:56 am CLINICAL HISTORY: f/u effusion, hypoxia COMPARISON: None TECHNIQUE: Frontal and lateral views of the chest were obtained. FINDINGS: The lungs are underinflated. No focal mass or consolidation of the upper lung guevara. Lung base atelectasis is present associated with moderate size bilateral pleural effusions. Pleural fluid volume is similar to prior imaging. Heart size is normal and central vasculature is within normal limits. No pneumothorax identified. No acute bony finding noted. No aortic abnormality. IMPRESSION: Moderate bilateral pleural effusions persist. No new or progressive cardiopulmonary fin ding.
[2022-02-11 11:22] VITALS: O2SAT 96
[2022-02-11 12:04] VITALS: BP 148/90; TEMP 97.1
[2022-02-11] MEDS: Levofloxacin 750mg IV 750 MG/150 ML BAG IV SCH (14:00)
--- NOTE | 2022-02-11 20:16 | P.DS ---
Admission Date: 02/07/22 Discharge Date: 02/11/22 Disposition: DC HOME/HOME HEALTH CARE Discharge Condition: GOOD Reason for Admission: Shortness of breath, dry heaving Consultations: Pulmonology - Dr. 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 Presented to the emergency department with a complaint of nausea and vomiting and dry heaving and shortness of breath. She reported poor oral intake due to her dry heaving. Patient also report generalized weakness. She is currently able to ambulate with a walker. She tested positive for COVID-19 about a week ago when she followed up with a PCP regarding the lung and liver metastasis. She has not undergone any follow-up to identify primary malignancy site. Checks x-ray done in the emergency department shows worsening right-sided pneumonia. Patient is not hypoxic on room air. She does not meet criteria for sepsis. Patient is hospitalized for further management. Hospital Course: Problem List bilateral pleural effusions, R>L, suspect secondary to malignancy COVID-19 infection Pulmonary and liver metastatic disease; unknown primary DM2 HTN obesity GERD, chronic Patient presented with generalized weakness/malaise with shortness of breath. She was positive for COVID ~1 week ago, but testing was negative in the ER this time. Found to have bilateral pleural effusions slightly increased compared to a few weeks ago and concern for possible pneumonia. Pulmonology was consulted. Suspect symptoms are secondary to metastatic disease / pleural effusions. She had improvement with oxygen supplementation, mild diuresis, and antibiotics. While slowly improving, she underwent biopsy of her liver lesion on 02/10, which she tolerated well. She was deemed stable for discharge home with home health/PT, and oxygen supplementation. Prescribed levaquin to complete 7 day total course, steroids, nebs, and spironolactone. Follow up with PCP within 1 week. Follow up with Dr. Coffey - Pulmonology in ~1 week, to review biopsy results and check on breathing. Continue home medications as previously prescribed. Physical Exam: Gen: NAD, AOx3 HEENT: normal conjunctiva, sclera anicteric CV: regular rate & rhythm, no edema Pulm: non-labored respirations at rest on 1L NC; diminished bilaterally at bases Abd: soft, non-tender, non-distended Neuro: normal speech, normal affect, moves all extremities equally Vital Signs/Physical Exam: Temp Pulse Resp BP Pulse Ox 97.1 F 91 H 16 148/90 H 95 02/11/22 12:00 02/11/22 12:00 02/11/22 12:00 02/11/22 12:00 02/11/22 12:00 Laboratory Data at Discharge: WBC 6.80 K/uL (4.3-10.9) 02/10/22 03:40 Hgb 12.3 g/dL (12.0-15.0) 02/10/22 03:40 Hct 37.4 % (36.0-45.0) 02/10/22 03:40 Plt Count 126 K/uL (152-406) L 02/10/22 03:40 PT 12.8 SECONDS (9.5-12.5) H 02/09/22 05:25 INR 1.16 02/09/22 05:25 APTT 31.5 SECONDS (24.3-36.9) 02/07/22 11:13 Sodium 144 mmol/L (136-145) 02/11/22 05:40 Potassium 3.5 mmol/L (3.5-5.1) 02/11/22 14:17 BUN 10 mg/dL (7-18) 02/11/22 05:40 Creatinine 0.59 mg/dL (0.55-1.3) 02/11/22 05:40 Glucose 102 mg/dL (74-106) 02/11/22 05:40 Phosphorus 2.7 mg/dL (2.5-4.9) 02/09/22 05:25 Magnesium 1.9 mg/dL (1.8-2.4) 02/11/22 05:40 Total Bilirubin 0.4 mg/dL (0.2-1.0) 02/11/22 05:40 AST 53 U/L (15-37) H 02/11/22 05:40 ALT 38 U/L (12-78) 02/11/22 05:40 Alkaline Phosphatase 175 U/L (45-117) H 02/11/22 05:40 Triglycerides 88 mg/dL (<150) 02/08/22 02:11 Cholesterol 76 mg/dL (<200) 02/08/22 02:11 HDL Cholesterol 41 mg/dL (40-60) 02/08/22 02:11 Cholesterol/HDL Ratio 1.85 02/08/22 02:11 Lipase 44 U/L (73-393) L 02/07/22 11:13 Home Medications: Duloxetine HCl 60 mg PO DAILY 01/16/22 Gabapentin 1 tab PO TID 01/16/22 Levothyroxine Sodium [Levothyroxine] 1 tab PO DAILY 01/16/22 Losartan Potassium [Cozaar*] 1 tab PO DAILY 01/16/22 Nicotine [Nicoderm*] 7 mg TD DAILY #15 patch 01/16/22 Pantoprazole Sodium 1 tab PO DAILY 01/16/22 Propafenone [Rythmol SR] 1 tab PO BID 01/16/22 Quetiapine [Seroquel*] 50 mg PO BEDTIME 01/16/22 Rivaroxaban [Xarelto] 1 tab PO DAILY AFTER SUPPER 01/16/22 Semaglutide [Rybelsus] 1 tab PO DAILY 01/16/22 Albuterol Neb [Proventil 0.083% Neb Soln] 2.5 mg NEB Q8HR 30 Days #90 amp 02/11/22 Spironolactone [Aldactone*] 25 mg PO DAILY 30 Days #30 tab 02/11/22 levoFLOXacin [Levaquin] 750 mg PO DAILY 4 Days #4 tab 02/11/22 predniSONE [Prednisone*] 20 mg PO DAILY 4 Days #5 tab 02/11/22 New Medications: Albuterol Neb [Proventil 0.083% Neb Soln] 2.5 mg NEB Q8HR 30 Days #90 amp Spironolactone [Aldactone*] 25 mg PO DAILY 30 Days #30 tab levoFLOXacin [Levaquin] 750 mg PO DAILY 4 Days #4 tab predniSONE [Prednisone*] 20 mg PO DAILY 4 Days #5 tab Physician Discharge Instructions: Patient presented with generalized weakness/malaise with shortness of breath. She was positive for COVID ~1 week ago, but testing was negative in the ER this time. Found to have bilateral pleural effusions slightly increased compared to a few weeks ago and concern for possible pneumonia. Pulmonology was consulted. Suspect symptoms are secondary to metastatic disease / pleural effusions. She had improvement with oxygen supplementation, mild diuresis, and antibiotics. While slowly improving, she underwent biopsy of her liver lesion on 02/10, which she tolerated well. She was deemed stable for discharge home with home health/PT, and oxygen supplementation. Prescribed levaquin to complete 7 day total course, steroids, nebs, and spironolactone. Follow up with PCP within 1 week. Follow up with Dr. Coffey - Pulmonology in ~1 week, to review biopsy results and check on breathing. Continue home medications as previously prescribed. Diet: ADA Time spent managing pt's care (in minutes): 45
== END 2022-02-11 15:53 | disposition home health service (06) | DRG 194 ==
LOC: ER 10:49 → ERHOLD 16:07 → 4TH 02-08 19:15
PROVIDERS: ADMIT Internal Medicine; ATTEND Internal Medicine
PROC: 0FB13ZX Excision of Right Lobe Liver, Percutaneous Approach, Diagnostic (ICD-10-PCS; principal; 2022-02-10)
DX: J15.9 Unspecified bacterial pneumonia (principal); Z68.42 Body mass index [BMI] 45.0-49.9, adult; J91.0 Malignant pleural effusion; C78.00 Secondary malignant neoplasm of unspecified lung; C78.7 Secondary malignant neoplasm of liver and intrahepatic bile duct; I10 Essential (primary) hypertension; E11.9 Type 2 diabetes mellitus without complications; I48.91 Unspecified atrial fibrillation; E03.9 Hypothyroidism, unspecified; K21.9 Gastro-esophageal reflux disease without esophagitis; G47.33 Obstructive sleep apnea (adult) (pediatric); E66.9 Obesity, unspecified; N83.209 Unspecified ovarian cyst, unspecified side; Z79.01 Long term (current) use of anticoagulants; Z88.0 Allergy status to penicillin; Z86.16 Personal history of COVID-19; Z20.822 Contact with and (suspected) exposure to COVID-19
CPT/HCPCS: 36415; 47000; 71045; 71046; 80048; 80053; 80061; 80076; 80202; 81003; 81015; 82947; 83690; 83735; 83880; 84100; 84132; 84145; 85025; 85610; 85730; 87077; 87086; 87088; 87186; 88305; 93005; 94010; 94660; 94760; 96361; 96365; 97110; 97116; 97161; 97530; 99285; J1644; J1940; J2250; J2405; J3010; J3370; J3480; J7030; J7040; J7042; U0003

== ENCOUNTER 2022-02-24 21:22 | Emergency (ER) | payer OTHER ==
--- OUTSIDE RECORDS SUMMARY | 2022-02-24 21:34 | XMS REPORT | Continuity of Care Document ---
:1960 Author Organization [facility] t Address [address] [place] [address] [place] [id number] Care Team Providers Name Role Phone OLIVERIO ALMANZAR Attending Clinician Unavailable VERENICE Attending Clinician Unavailable Oliverio Almanzar MD Attending Clinician [phone] OLIVERIO ALMANZAR Attending Clinician Unavailable OLIVERIO ALMANZAR Admitting Clinician Unavailable VERENICE Admitting Clinician Unavailable Payers Payer Name Policy Type Policy Number Effective Date Expiration Date S opal MEDICARE A B [id number] 2006 00:00:00 MEDICAID [place] [id number] 2021 00:00:00 MEDICARE PART A [id number] \[id number]\ [id number] - MEDICARE [facility]-MEDICAID - [id number] MEDICAID Problems This patient has no known problems. Allergies, Adverse Reactions, Alerts Allergy Allergy Status Severity Reaction(s) Onset Inactive Treating Comm ents Source Name Type Date Date Clinician NO KNOWN Allergy Active ASHWIN DAS S Social History Social Habit Start Date Stop Date Quantity Comments Source Sex Assigned At [address] [facility]00 [facility] Medications This patient has no known medications. Procedures This patient has no known procedures. Plan of Care Planned Activity Planned Date Details Comments Source Future Scheduled 2022-02-11 INFLUENZA VACCINE (#1) [facility] 00:00[facility]00 [code = INFLUENZA Medical Ce nter VACCINE (#1)] Future Scheduled 2022-02-11 INFLUENZA VACCINE (#1) [facility] 00:00:00 [code = INFLUENZA Medical Ce nter VACCINE (#1)] Future Scheduled [address] [facility] 00:00:00 (12+) [code = Medical Center DEPRESSION SCREENING (12+)] Future Scheduled [address] [facility] 00:00:00 (12+) [code = Medical Center DEPRESSION SCREENING (12+)] Future Scheduled 2009 SHINGLES VACCINES ([address] [facility] 00:00:00 2) [code = SHINGLES Medical Center VACCINES (1 of 2)] Future Scheduled 2009 SHINGLES VACCINES ([address] [facility] 00:00:00 2) [code = SHINGLES Medical Center VACCINES (1 of 2)] Future Scheduled 2007-05-[address] [facility] 00:00:00 WELLNESS (YEAR 2 or Medical Center FIRST YEAR if no IPPE) [code = MEDICARE ANNUAL WELLNESS (YEAR 2 or FIRST YEAR if no IPPE)] Future Scheduled 2007-05-[address] [facility] 00:00:00 WELLNESS (YEAR 2 or Medical Center FIRST YEAR if no IPPE) [code = MEDICARE ANNUAL WELLNESS (YEAR 2 or FIRST YEAR if no IPPE)] Future Scheduled 2004 Lipid panel (procedure) [facility] 00:00:00 [code = 56888379] Medical Ce nter Future Scheduled 2004 Lipid panel (procedure) [facility] 00:00:00 [code = 58029015] Medical Ce nter Future Scheduled 1980 Screening for malignant [facility] 00:00:00 neoplasm of cervix Medical C enter (procedure) [code = 999394959] Future Scheduled 1980 Screening for malignant [facility] 00:00:00 neoplasm of cervix Medical C enter (procedure) [code = 939386781] Future Scheduled 1978 DTAP/TDAP/TD VACCINES [facility] 00:00:00 (1 - Tdap) [code = Medical C enter DTAP/TDAP/TD VACCINES (1 - Tdap)] Future Scheduled 1978 DTAP/TDAP/TD VACCINES [facility] 00:00:00 (1 - Tdap) [code = Medical C enter DTAP/TDAP/TD VACCINES (1 - Tdap)] Future Scheduled 1977 HEPATITIS C SCREENING [facility] 00:00:00 [code = HEPATITIS C Medical Center SCREENING] Future Scheduled 1977 HEPATITIS C [facility]CRE[facility]ING [facility] 00:00:00 [code = HEPATITIS C Medical Center SCREENING] Future Scheduled 1960 COVID-19 VACCINE (#1) [facility] 00:[facility]00 [code = COVID-[address] VACCINE (#1)] Future Scheduled 1960 COVID-19 VACCINE (#1) [facility]:00:00 [code = COVID-[address] VACCINE (#1)] Future Scheduled 1959 Screening for malignant [facility] 00:00:00 neoplasm of colon Medical Ce nter (procedure) [code = 668363471] Future Scheduled 1959 Screening for malignant [facility] 00:00:00 neoplasm of colon Medical Ce nter (procedure) [code = 000102927] Future Scheduled 1959 Screening for malignant [facility] 00:00:00 neoplasm of colon Medical Ce nter (procedure) [code = 882610872] Future Scheduled 1959 Screening for malignant [facility] 00:00:00 neoplasm of colon Medical Ce nter (procedure) [code = 693083319] Future Scheduled 1960 Sigmoidoscopy [code = [facility] S[facility]oscopy] Medical Cent[facility] r Future Scheduled 1959 Screening for malignant [facility] 00:00:00 neoplasm of breast Medical C enter (procedure) [code = 934185857] Future Scheduled 1959 CT Colonography (combo) [facility] 00:00:00 [code = CT Colonography [facility] (combo)] Future Scheduled 1959 Screening for malignant [facility] 00:00:00 neoplasm of colon Medical Ce nter (procedure) [code = 150843137] Future Scheduled 1959 Screening for malignant [facility] 00:00:00 neoplasm of colon Medical Ce nter (procedure) [code = 787530966] Future Scheduled 1959 Screening for malignant [facility] 00:00:00 neoplasm of colon Medical Ce nter (procedure) [code = 781791864] Future Scheduled 1959 Screening for malignant [facility] 00:00:00 neoplasm of colon Medical Ce nter (procedure) [code = 331586184] Future Scheduled 1960 Sigmoidoscopy [code = [facility]oscopy] Medical Cente r Future Scheduled 1959 Screening for malignant [facility] 00:00:00 neoplasm of breast Medical C enter (procedure) [code = 485944299] Future Scheduled 1959 CT Colonography (combo) [facility] 00:00:00 [code = CT Colonography [facility] (combo)] Encounters Start End Encounter Admission Attending Care Care Encounter Source Date/Time Date/Time Type Type Clinicians Facility Department ID 2021-09-09 Outpatient [facility] Surgery [id number] [facility] 10:58:42 OLIVERIO 2021-12-22 2021-12-22 Outpatient ADALBERTO HINTON [id number] 05:28:00 05:28:00 HN [id number] da [facility] Program 2021-10-08 2021-10-[address] [facility] [id number] [facility] 00:00:00 00:00:00 2021-09-18 2021-09-18 [facility] [id number] 23:59:00 23:59:00 Encounter [facility] 2021-09-18 2021-09-18 [facility] [id number] 23:59:00 23:59:00 Encounter [facility] 2021-09-18 2021-09-18 Outpatient [facility] SLE [id number] [facility] 00:00:00 23:59:00 OLIVERIO 2021-09-10 2021-09-10 [facility] [id number] 00:00:00 00:00:00 Orders [facility] 2021-09-10 2021-09-10 [facility] [id number] 00:00:00 00:00:00 Orders [facility] 2021-09-08 2021-09-08 Outpatient JOEL ALMANZAR [facility] [id number] [facility] 13:41:44 15:49:12 OLIVERIO Rodriguez Medicin e Results This patient has no known results.
[2022-02-24 22:56] LABS: Absolute Lymphocytes (CBC) 1.1 K/uL (0.7-4.9); Hematocrit 38.1 % (36.0-45.0); Lymphocytes % 14.2 % (15.3-44.8); MCV 87.6 fL (80-100); MPV 7.8 fL (7.6-11.3); RBC Red Blood Cell Count 4.35 M/uL (3.86-4.86)
[2022-02-24 23:19] LABS: Potassium 2.6 mmol/L (3.5-5.1)
[2022-02-24] MEDS ORDERED: POTASSIUM 25 MEQ EFFERV TAB ONE (23:44)
[2022-02-24] MEDS ORDERED: KCL 20 MEQ/100 mL IVPB 100 ML IV ONE (23:44)
--- NOTE | 2022-02-25 00:06 | RAD REPORT ---
EXAM DESCRIPTION: CTChest Abdomen Pelvis W Cont - 02/24/2022 11:53 pm CLINICAL HISTORY: Right flank pain COMPARISON: Liver Biopsy Procedure dated 02/10/2022; Abdomen Pelvis W Contrast dated 01/14/2022; Thor ax W/ Con dated 01/15/2022 TECHNIQUE: CT of the chest, abdomen, and pelvis was performed with IV contrast. All CT scans are performed using dose optimization technique as appropriate and may include automated exposure control or mA/KV adjustment according to patient size. FINDINGS: Thorax: Chest Wall: No abnormal mass Lungs: Atelectasis as a resolving effusion. Bilateral pulmonary nodules consistent with metastatic di sease. Pleura: Moderate right pleural effusion which may be malignant. Tresa/Mediastinum: Mild mediastinal adenopathy which is unchanged. . Aorta/Pulmonary Arteries: Unremarkable Heart: Normal size. Abdomen/Pelvis: Liver: Multiple liver lesions consistent with metastatic disease. The largest lesion in the right hep atic lobe measures approximately 6 cm and is unchanged. Biliary: No biliary ductal dilatation. Stomach: No significant focal abnormality. Duodenum: No significant focal abnormality. Pancreas: No significant abnormality. Spleen: No significant abnormality. Adrenal: No suspicious lesions. Kidney/ureter: No hydronephrosis. No renal calculi. Retroperitoneum: No retroperitoneal adenopathy. Vascular: No aneurysm. IVC filter. Bowel: No significant focal abnormality. Peritoneum: Small volume of ascites. Fat containing ventral hernia. Bladder: Grossly unremarkable. Reproductive: No adnexal masses. Bones: No acute fracture. Multilevel degenerative changes are present in the spine. Other: n/a IMPRESSION: 1. No new acute findings within the chest, abdomen, or pelvis to explain reported right flank pain. 2. Metastatic disease including multiple liver lesions, pulmonary nodules, and mediastinal adenopathy which is similar to the CT from 01/15/2022 and 01/14/2022.
--- NOTE | 2022-02-25 01:01 | EDPHYS ---
Physician Documentation [facility] Name: Melania Renteria Age: 61 yrs Sex: Female : 1960 Arrival Date: 02/24/2022 Time: 21:28 Bed 27 Private MD: ED Physician Cristhian Logan HPI: 02/24 23:09 This 61 yrs old Unknown Female presents to ER via EMS with complaints of Right flank kdr pain. 23:09 Patient presents today complaining of right flank pain. She is concerned that she may kdr have a metastasizing cancer. She is concerned that this pain is provider service representative of that expanding problem. She denies any other issues she is nontoxic-appearing. She does not have chest pain shortness of breath or otherwise appear to need emergent intervention.. Onset: The symptoms/episode began/occurred today. Severity of symptoms: At their worst the symptoms were mild in the emergency department the symptoms are unchanged. The patient has not experienced similar symptoms in the past. The patient has not recently seen a physician. Historical: - Allergies: 21:32 PENICILLINS; kl - Home Meds: 21:32 duloxetine 60 mg Oral CDRS 1 cap once daily [Active]; gabapentin 100 mg Oral cap 1 cap kl 3 times per day [Active]; ibuprofen 800 mg Oral tab 1 tab 3 times per day [Active]; levothyroxine 200 mcg cap 1 cap once daily [Active]; losartan 50 mg Oral tab 1 tab once daily [Active]; pantoprazole 40 mg Oral TbEC 1 tab once daily [Active]; propafenone 225 mg Oral tab 1 tab twice a day [Active]; quetiapine 50 mg Oral tab 1 tab nightly [Active]; Rybelsus 7 mg Oral tab 1 tab once daily [Active]; Xarelto 20 mg Oral tab 1 tab once daily [Active]; - PMHx: 21:32 Arthritis; Atrial fibrillation; Depression; diabetes mellitus; Hypertensive disorder; kl Hypothyroidism; 21:33 lung cancer; kl - PSHx: 21:32 Cholecystectomy; kl - Immunization history:: Adult Immunizations not up to date. - Social history:: Smoking status: Patient reports the use of cigarette tobacco products, smokes one pack cigarettes per day. ROS: 23:09 Constitutional: Negative for fever, chills, and weight loss, Eyes: Negative for injury, kdr pain, redness, and discharge, Neck: Negative for injury, pain, and swelling, Cardiovascular: Negative for chest pain, palpitations, and edema, Respiratory: Negative for shortness of breath, cough, wheezing, and pleuritic chest pain, Abdomen/GI: Negative for abdominal pain, nausea, vomiting, diarrhea, and constipation, : Negative for injury, bleeding, discharge, and swelling, MS/Extremity: Negative for injury and deformity, Skin: Negative for injury, rash, and discoloration, Neuro: Negative for headache, weakness, numbness, tingling, and seizure activity. Psych: Negative for depression, anxiety, suicide ideation, homicidal ideation, and hallucinations, Allergy/Immunology: Negative for hives, rash, and allergies, Endocrine: Negative for neck swelling, polydipsia, polyuria, polyphagia, and marked weight changes, Hematologic/Lymphatic: Negative for swollen nodes, abnormal bleeding, and unusual bruising. 23:09 Abdomen/GI: Positive for of the posterior aspect of right lateral abdomen, Negative for 23:09 Back: Positive for pain at rest, pain with movement. Exam: 23:09 Constitutional: This is a well developed, well nourished patient who is awake, alert, kdr and in no acute distress. Head/Face: Normocephalic, atraumatic. Eyes: Pupils equal round and reactive to light, extra-ocular motions intact. Lids and lashes normal. Conjunctiva and sclera are non-icteric and not injected. Cornea within normal limits. Periorbital areas with no swelling, redness, or edema. Neck: Trachea midline, no thyromegaly or masses palpated, and no cervical lymphadenopathy. Supple, full range of motion without nuchal rigidity, or vertebral point tenderness. No Meningismus. Chest/axilla: Normal chest wall appearance and motion. Nontender with no deformity. No lesions are appreciated. Cardiovascular: Regular rate and rhythm with a normal S1 and S2. No gallops, murmurs, or rubs. Normal PMI, no JVD. No pulse deficits. Respiratory: Lungs have equal breath sounds bilaterally, clear to auscultation and percussion. No rales, rhonchi or wheezes noted. No increased work of breathing, no retractions or nasal flaring. Abdomen/GI: Soft, non-tender, with normal bowel sounds. No distension or tympany. No guarding or rebound. No evidence of tenderness throughout. Back: No spinal tenderness. No costovertebral tenderness. Full range of motion. Skin: Warm, dry with normal turgor. Normal color with no rashes, no lesions, and no evidence of cellulitis. MS/ Extremity: Pulses equal, no cyanosis. Neurovascular intact. Full, normal range of motion. Neuro: Awake and alert, GCS 15, oriented to person, place, time, and situation. Cranial nerves II-XII grossly intact. Motor strength 5/5 in all extremities. Sensory grossly intact. Cerebellar exam normal. Normal gait. Psych: Awake, alert, with orientation to person, place and time. Behavior, mood, and affect are within normal limits. Vital Signs: 21:28 BP 98 / 77; Pulse 88; Resp 20; Pulse Ox 89% on R/A; Pain 0/10; kl 21:37 BP 107 / 80; Pulse 80; Resp 18; Pulse Ox 95% on 2 lpm NC; kl 22:48 BP 117 / 89; Pulse 82; Resp 18; Pulse Ox 100% on 2 lpm NC; Pain 0/10; kl 23:13 BP 112 / 84; Pulse 75; Resp 19; Pulse Ox 100% ; ha1 MDM: 23:09 Data reviewed: vital signs, nurses notes, lab test result(s), radiologic studies. kdr Counseling: I had a detailed discussion with the patient and/or guardian regarding: the historical points, exam findings, and any diagnostic results supporting the discharge/admit diagnosis, lab results, radiology results, the need for outpatient follow up. 02/25 01:00 Patient medically screened. kdr 02/24 22:12 Order name: CBC with Diff; Complete Time: 23:08 kdr 02/24 22:12 Order name: Chem 7; Complete Time: 23:26 kdr 02/24 22:12 Order name: CT Chest, Abdomen, Pelvis - W/Contrast; Complete Time: 01:05 kdr Administered Medications: 00:15 Drug: Potassium Chloride 20 mEq Route: IV; Rate: calculated rate; Site: right wrist; kl 00:15 Drug: Potassium Effervescent Tablet 50 mEq Route: PO; kl Disposition Summary: 02/25/22 01:00 Discharge Ordered Location: Home kdr Problem: new kdr Symptoms: have improved kdr Condition: Stable kdr Diagnosis - Flank pain kdr Followup: kdr - With: Private Physician - When: 2 - 3 days - Reason: If symptoms return, Further diagnostic work-up, Recheck today's complaints, Continuance of care, Re-evaluation by your physician Discharge Instructions: - Discharge Summary Sheet kdr - Flank Pain, Adult, [id number] kdr Forms: - Medication Reconciliation Form kdr - Thank You Letter kdr Signatures: Dispatcher [employer] Nolvia Gloria RN RN kl Rittger, Kevin, MD MD kdr
--- NOTE | 2022-02-25 01:01 | ER ---
Nurse's Notes [facility] Name: Melania Renteria Age: 61 yrs Sex: Female : 1960 Arrival Date: 02/24/2022 Time: 21:28 Bed 27 Private MD: Diagnosis: Flank pain Presentation: 02/24 21:28 Chief complaint: Patient states: right upper back pain with SOB pt reports panicked and kl called EMS denies pain at this time recent diagnosis of lung cancer with possible mets to liver Pt on home pO2. Coronavirus screen: Vaccine status: Patient reports being unvaccinated. positive for covid 1 month prior. Ebola Screen: Patient negative for fever greater than or equal to 101.5 degrees Fahrenheit, and additional compatible Ebola Virus Disease symptoms. Initial Sepsis Screen: Does the patient meet any 2 criteria? No. Patient's initial sepsis screen is negative. Does the patient have a suspected source of infection? No. Patient's initial sepsis screen is negative. Risk Assessment: Do you want to hurt yourself or someone else? Patient reports no desire to harm self or others. Onset of symptoms was February 23, 2022 at 14:00. 21:28 Method Of Arrival: EMS: [facility] 21:28 Acuity: SONJA 3 kl Triage Assessment: 21:33 General: Appears in no apparent distress. comfortable, obese, Behavior is calm, kl cooperative. Pain: Denies pain. EENT: No deficits noted. Neuro: No deficits noted. Cardiovascular: Heart tones S1 S2. Respiratory: Reports shortness of breath on exertion Airway is patent Trachea midline Respiratory effort is even, unlabored, Respiratory pattern is regular, symmetrical, Breath sounds are diminished in right posterior middle lobe and right posterior lower lobe. GI: No deficits noted. No signs and/or symptoms were reported involving the gastrointestinal system. : No deficits noted. No signs and/or symptoms were reported regarding the genitourinary system. Historical: - Allergies: 21:32 PENICILLINS; kl - Home Meds: 21:32 duloxetine 60 mg Oral CDRS 1 cap once daily [Active]; gabapentin 100 mg Oral cap 1 cap kl 3 times per day [Active]; ibuprofen 800 mg Oral tab 1 tab 3 times per day [Active]; levothyroxine 200 mcg cap 1 cap once daily [Active]; losartan 50 mg Oral tab 1 tab once daily [Active]; pantoprazole 40 mg Oral TbEC 1 tab once daily [Active]; propafenone 225 mg Oral tab 1 tab twice a day [Active]; quetiapine 50 mg Oral tab 1 tab nightly [Active]; Rybelsus 7 mg Oral tab 1 tab once daily [Active]; Xarelto 20 mg Oral tab 1 tab once daily [Active]; - PMHx: 21:32 Arthritis; Atrial fibrillation; Depression; diabetes mellitus; Hypertensive disorder; kl Hypothyroidism; 21:33 lung cancer; kl - PSHx: 21:32 Cholecystectomy; kl - Immunization history:: Adult Immunizations not up to date. - Social history:: Smoking status: Patient reports the use of cigarette tobacco products, smokes one pack cigarettes per day. Screenin:48 Abuse screen: Denies threats or abuse. Nutritional screening: No deficits noted. kl Tuberculosis screening: No symptoms or risk factors identified. Fall Risk None identified. Assessment: 22:48 Reassessment: Patient appears in no apparent distress at this time. Patient and/or kl family updated on plan of care and expected duration. Pain level reassessed. Patient is alert, oriented x 3, equal unlabored respirations, skin warm/dry/pink. Vital Signs: 21:28 BP 98 / 77; Pulse 88; Resp 20; Pulse Ox 89% on R/A; Pain 0/10; kl 21:37 BP 107 / 80; Pulse 80; Resp 18; Pulse Ox 95% on 2 lpm NC; kl 22:48 BP 117 / 89; Pulse 82; Resp 18; Pulse Ox 100% on 2 lpm NC; Pain 0/10; kl 23:13 BP 112 / 84; Pulse 75; Resp 19; Pulse Ox 100% ; ha1 ED Course: 21:28 Patient arrived in ED. kl 21:30 Maintain EMS IV. Dressing intact. Good blood return noted. Site clean \T\ dry. Gauge \T\ kl site: 20 gauge right wrist 20 gauge left hand. 21:31 Triage completed. kl 21:32 Cristhian Logan MD is Attending Physician. kdr 22:47 Inserted saline lock: 20 gauge in left forearm, using aseptic technique. Blood kl collected. 22:51 Chem 7 Sent. kl 22:51 CBC with Diff Sent. kl 23:55 CT Chest, Abdomen, Pelvis - W/Contrast In Process Unspecified. EDMS 02/25 02:36 Arm band placed on. ll3 02:37 No provider procedures requiring assistance completed. IV discontinued, intact, ll3 bleeding controlled, No redness/swelling at site. Pressure dressing applied. 02:37 Patient has correct armband on for positive identification. Bed in low position. Call ll3 light in reach. Side rails up X 1. Administered Medications: 00:15 Drug: Potassium Chloride 20 mEq Route: IV; Rate: calculated rate; Site: right wrist; kl 00:15 Drug: Potassium Effervescent Tablet 50 mEq Route: PO; kl Medication: 02:37 VIS not applicable for this client. ll3 Outcome: 01:00 Discharge ordered by . kdr 02:37 Discharged to home ambulatory, with family. ll3 02:37 Condition: stable 02:37 Discharge instructions given to patient, family, Instructed on discharge instructions, follow up and referral plans. Demonstrated understanding of instructions, follow-up care. 02:37 Patient left the ED. ll3 Signatures: Dispatcher [employer] [facility] Nolvia Mills RN RN Cristhian Mcgregor MD MD kdr Loubet, Lynsea, RN RN ll3 Nataliya Hall, RN RN ha1
[2022-02-26 03:55] VITALS: O2SAT 100
[2022-02-26 04:04] VITALS: BP 112/84
== END 2022-02-25 02:37 | disposition home or self-care (01) ==
LOC: ER 21:22
DX: R10.9 Unspecified abdominal pain (principal); E11.9 Type 2 diabetes mellitus without complications; I10 Essential (primary) hypertension
CPT/HCPCS: 85025; 80048; 36415; 71260; 74177; 96374; 99284; Q9967; J3480

== ENCOUNTER 2022-03-09 12:45 | Emergency (ER) | payer OTHER ==
--- OUTSIDE RECORDS SUMMARY | 2022-03-09 12:49 | XMS REPORT | Continuity of Care Document ---
:1960 Author Organization [facility] t Address [address] [place] [address] [place] [address] Care Team Providers Name Role Phone OLIVERIO ALMANZAR Attending Clinician Unavailable VERENICE Attending Clinician Unavailable Oliverio Almanzar MD Attending Clinician [phone] OLIVERIO ALMANZAR Attending Clinician Unavailable OLIVERIO ALMANZAR Admitting Clinician Unavailable VERENICE Admitting Clinician Unavailable Payers Payer Name Policy Type Policy Number Effective Date Expiration Date S opal MEDICARE A B [id number] 2006 00:00:00 MEDICA[place] [id number] 2021 00:00:00 MEDICARE PART A [id number] \T\ B - MEDICARE [facility]-MEDICAID - [id number] MEDICAID Problems This patient has no known problems. Allergies, Adverse Reactions, Alerts Allergy Allergy Status Severity Reaction(s) Onset Inactive Treating Comm ents Source Name Type Date Date Clinician NO KNOWN Allergy Active ASHWIN DAS S Social History Social Habit Start Date Stop Date Quantity Comments Source Sex Assigned At [address] [facility] Medications This patient has no [...] [facility] 00:00:00 [code = 41021566] Medical Ce nter Future Scheduled 2004 Lipid panel (procedure) [facility] 00:00:00 [code = 97350208] Medical Ce nter Future Scheduled 2004 Lipid panel (procedure) [facility] 00:00:00 [code = 43107151] Medical Ce nter Future Scheduled 1980 Screening for malignant [facility] 00:00:00 neoplasm of cervix Medical C enter (procedure) [code = 514459434] Future Scheduled 1980 Screening for malignant [facility] 00:00:00 neoplasm of cervix Medical C enter (procedure) [code = 971181661] Future Scheduled 1980 Screening for malignant [facility] 00:00:00 neoplasm of cervix Medical C enter (procedure) [code = 996448930] Future Scheduled 1978 DTAP/TDAP/TD VACCINES [facility] I [...] colon Medical Ce nter (procedure) [code = 713211208] Future Scheduled 1959 Screening for malignant [facility] 00:00:00 neoplasm of colon Medical Ce nter (procedure) [code = 917453727] Future Scheduled 1959 Screening for malignant [facility] 00:00:00 neoplasm of colon Medical Ce nter (procedure) [code = 408937537] Future Scheduled 1959 Screening for malignant [facility] 00:00:00 neoplasm of colon Medical Ce nter (procedure) [code = 887060242] Future Scheduled 1960 Sigmoidoscopy [code = [facility] Future Scheduled 1959 Screening for malignant [facility] 00:00:00 neoplasm of breast Medical C enter (procedure) [code = 423131078] Future Scheduled 1959 CT Colonography (combo) [facility] 00:00:00 [code = CT [facility] ([facility])] Future Scheduled 1959 Screening for malignant [facility] 00:00:00 neoplasm of colon Medical Ce nter (procedure) [code = 210323222] Future Scheduled 1959 Screening for malignant [facility] 00:00:00 neoplasm of colon Medical Ce nter (procedure) [code = 959327886] Future Scheduled 1959 Screening for malignant [facility] 00:00:00 neoplasm of colon Medical Ce nter (procedure) [code = 049896207] Future Scheduled 1959 Screening for malignant [facility] 00:00:00 neoplasm of colon Medical Ce nter (procedure) [code = 638416092] Future Scheduled 1960 Sigmoidoscopy [facility]code = [facility] Medical Cent[facility] r Future Scheduled 1959 Screening for malignant [facility] 00:00:00 neoplasm of breast Medical C enter (procedure) [code = 599116648] Future Scheduled 1959 CT Colonography (combo) [facility] 00:00:00 [code = CT [facility] (combo)] Future Scheduled 1959 Screening for malignant [facility] 00:00:00 neoplasm of colon Medical Ce nter (procedure) [code = 136035218] Future Scheduled 1959 Screening for malignant [facility] 00:00:00 neoplasm of colon Medical Ce nter (procedure) [code = 891077388] Future Scheduled 1959 Screening for malignant [facility] 00:00:00 neoplasm of colon Medical Ce nter (procedure) [code = 748347681] Future Scheduled 1959 Screening for malignant [facility] 00:00:00 neoplasm of colon Medical Ce nter (procedure) [code = 562156137] Future Scheduled 1960 Sigmoidoscopy [code = [facility]oscopy] Medical Cent[facility] r Future Scheduled 1959 Screening for malignant [facility] Test 00:00:00 neoplasm of breast Medical C enter (procedure) [code = 665891530] Future Scheduled 1960 CT Colonography (combo) [facility] 00:00:00 [code = CT Colonography [facility] (combo)] Encounters Start End Encounter Admission Attending Care Care Encounter Source Date/Time Date/Time Type Type Clinicians Facility Department ID 2021-09-09 Outpatient FRANCES ALMANZAR Surgery [id number] [facility] 10:58:42 OLIVERIO 2021-12-22 2021-12-22 Outpatient ADALBERTO HINTON [id number] [place] 05:28:00 05:28:[id number] [facility] 2021-10-08 2021-10-08 Outpatient [facility] [id number] [facility] 00:00:00 00:00:00 2021-09-18 2021-09-18 [facility] [id number] [facility] [address] 23[facility]59[facility]00 23:59[facility]00 [facility] 2021-09-18 [facility] [id number] [address] 23:59:00 23:59:00 Encounter Oliverio [facility] 2021-09-18 2021-09-18 Outpatient JENELLE [facility] [id number] SLE 00:00:00 23:59:00 OLIVERIO 2021-09-10 2021-09-10 Outside Jenelle [facility] [id number] 00:00[facility]00 00:00:00 Orders [facility] 2021-09-10 2021-09-10 Outside Jenelle [facility] [id number] 00:00:00 00:00:00 Orders [facility] 2021-09-08 2021-09-08 Outpatient JENELLE [facility] [id number] [facility] 13:41:44 15:49:12 OLIVERIO Rodriguez Medicin e Results This patient has no known results.
--- NOTE | 2022-03-09 14:07 | RAD REPORT ---
EXAM DESCRIPTION: Shirin Single View03/09/2022 1:49 pm CLINICAL HISTORY: Chest pain COMPARISON: February 24, 2022 FINDINGS: Moderate right pleural effusion with basilar atelectasis. Upper lobes appear clear. Heart is normal size
[2022-03-09 14:46] LABS: Hematocrit 45.4 % (36.0-45.0); Lymphocytes % 10.8 % (15.3-44.8); MPV 8.7 fL (7.6-11.3); RBC Red Blood Cell Count 5.05 M/uL (3.86-4.86)
[2022-03-09 14:57] LABS: Albumin 2.3 g/dL (3.4-5.0); Bilirubin Direct 0.4 mg/dL (0-0.2); Bilirubin Total 0.9 mg/dL (0.2-1.0); Magnesium 1.9 mg/dL (1.8-2.4); Potassium 3.3 mmol/L (3.5-5.1); Protein, Total 6.4 g/dL (6.4-8.2); Troponin High Sensitivity 13.6 pg/mL (<58.9)
--- NOTE | 2022-03-09 15:57 | RAD REPORT ---
EXAM DESCRIPTION: CT - Abdomen Pelvis W Contrast - 03/09/2022 3:30 pm CLINICAL HISTORY: Abdominal pain/epigastric pain COMPARISON: February 25, 2022 TECHNIQUE: Computed axial tomography of the abdomen pelvis was obtained. 100 cc Isovue-300 was admin istered intravenously. Oral contrast was not requested which limits evaluation of bowel and appendix All CT scans are performed using dose optimization technique as appropriate and may include automated exposure control or mA/KV adjustment according to patient size. FINDINGS: Pulmonary nodules. Multiple hepatic lesions without significant change. Spleen, pancreas, adrenals and kidneys demonstrate no significant abnormality. Moderate right pleural effusion with basilar atelectasis. Small to moderate amounts ascites. No bowel obstruction. Abdominal lymphadenopathy unchanged Ventral hernia. Cholecystectomy. IVC filter in place IMPRESSION: Moderate right pleural Pulmonary nodules, hepatic lesions and abdominal lymphadenopathy without significant change from suryao r.
--- NOTE | 2022-03-09 16:07 | ER ---
Nurse's Notes [facility] Name: Melania Renteria Age: 61 yrs Sex: Female : 1960 Arrival Date: 03/09/2022 Time: 12:46 Bed 10 Private MD: Diagnosis: Other malaise and fatigue Presentation: 03/09 13:22 Chief complaint: Patient states: generalized weakness today, pt reports nausea today. aa5 Pt states "I felt okay the last 3 days but today I don't". 13:23 Coronavirus screen: nausea. Ebola Screen: Patient denies travel to an Ebola-affected [facility] area in the 21 days before illness onset. Initial Sepsis Screen: Does the patient meet any 2 criteria? No. Patient's initial sepsis screen is negative. Does the patient have a suspected source of infection? No. Patient's initial sepsis screen is negative. Risk Assessment: Do you want to hurt yourself or someone else? Patient reports no desire to harm self or others. Onset of symptoms was February 2022. 13:23 Method Of Arrival: Wheelchair aa5 13:23 Acuity: SONJA 3 aa5 Historical: - Allergies: 13:21 PENICILLINS; aa5 - PMHx: 13:21 Arthritis; Atrial fibrillation; Depression; diabetes mellitus; Hypertensive disorder; aa5 Hypothyroidism; Lung Cancer; - PSHx: 13:21 Cholecystectomy; aa5 - Immunization history:: Adult Immunizations unknown. - Social history:: Smoking status: Patient reports the use of cigarette tobacco products, smokes one-half pack cigarettes per day. Screenin:41 Abuse screen: Denies threats or abuse. Denies injuries from another. Nutritional iw screening: No deficits noted. Tuberculosis screening: No symptoms or risk factors identified. Fall Risk None identified. Assessment: 15:00 General: Appears in no apparent distress. Behavior is calm, cooperative. Pain: Denies hb pain. Neuro: Level of Consciousness is awake, alert, obeys commands, Oriented to person, place, time, situation. Cardiovascular: Patient's skin is warm and dry. Respiratory: Respiratory effort is even, unlabored, Respiratory pattern is regular, symmetrical. GI: No signs and/or symptoms were reported involving the gastrointestinal system. : No signs and/or symptoms were reported regarding the genitourinary system. EENT: No signs and/or symptoms were reported regarding the EENT system. Derm: Skin is dry, Skin is pale, Skin temperature is warm. Musculoskeletal: Reports generalized weakness. 16:46 Reassessment: Patient appears in no apparent distress at this time. Patient and/or hb family updated on plan of care and expected duration. Pain level reassessed. Patient is alert, oriented x 3, equal unlabored respirations, skin warm/dry/pink. Vital Signs: 13:23 BP 108 / 75; Pulse 90; Resp 18 S; Temp 98.2(TE); Pulse Ox 96% on R/A; aa5 ED Course: 12:46 Patient arrived in ED. am2 13:00 [facility] 13:00 Bruno Morejon MD is Attending Physician. [facility] 13:22 Arm band placed on. aa5 13:24 Triage completed. aa5 13:46 XRAY Chest (1 view) In Process Unspecified. EDMS 14:23 Lucita Gómez, RN is Primary Nurse. iw 14:39 Inserted saline lock: 22 gauge in right antecubital area, using aseptic technique. iw 15:31 Abdomen In Process Unspecified. EDMS 15:41 Patient has correct armband on for positive identification. iw 16:47 No provider procedures requiring assistance completed. IV discontinued, intact, hb bleeding controlled, No redness/swelling at site. Administered Medications: No medications were administered Medication: 16:47 VIS not applicable for this client. hb Outcome: 16:06 Discharge ordered by . [facility] 16:46 Discharged to home via wheelchair. hb 16:46 Condition: stable 16:46 Discharge instructions given to patient, Instructed on discharge instructions, follow up and referral plans. Demonstrated understanding of instructions, follow-up care. 16:47 Patient left the ED. hb Signatures: Dispatcher [employer] EDMS Lucita Gómez RN RN Radha Pimentel RN RN [facility] Jennifer Mason RN RN Raisa Loving am2 Brittani Serra FNP NEGATIVE CUTTER [facility] Corrections: (The following items were deleted from the chart) 13:24 13:22 Chief complaint: Patient states: generalized weakness today, aa5 aa5
--- NOTE | 2022-03-09 16:08 | EDPHYS ---
Physician Documentation [facility] Name: Melania Renteria Age: 61 yrs Sex: Female : 1960 Arrival Date: 03/09/2022 Time: 12:46 Bed 10 Private MD: JENN Physician Bruno Morejon HPI: 03/09 13:05 This 61 yrs old Unknown Female presents to ER via Wheelchair with complaints of General jh7 Weakness. 13:05 Onset: The symptoms/episode began/occurred this morning. Associated signs and symptoms: jh7 Pertinent positives: Fatigue, nausea, epigastric pain. Pt presents with generalized weakness, epigastric pain, fatigue, and nausea starting this morning. She reports that her abdomen has been hurting for the past week, but symptoms worsened today.. Historical: - Allergies: 13:21 PENICILLINS; aa5 - PMHx: 13:21 Arthritis; Atrial fibrillation; Depression; diabetes mellitus; Hypertensive disorder; aa5 Hypothyroidism; Lung Cancer; - PSHx: 13:21 Cholecystectomy; aa5 - Immunization history:: Adult Immunizations unknown. - Social history:: Smoking status: Patient reports the use of cigarette tobacco products, smokes one-half pack cigarettes per day. ROS: 13:05 Constitutional: Negative for fever, chills, and weight loss, Eyes: Negative for injury, jh7 pain, redness, and discharge, ENT: Negative for injury, pain, and discharge, Neck: Negative for injury, pain, and swelling, Cardiovascular: Negative for chest pain, palpitations, and edema, Respiratory: Negative for shortness of breath, cough, wheezing, and pleuritic chest pain, Back: Negative for injury and pain, MS/Extremity: Negative for injury and deformity, Skin: Negative for injury, rash, and discoloration. 13:05 Abdomen/GI: Positive for abdominal pain, nausea, Negative for vomiting, diarrhea. 13:05 Neuro: Positive for weakness, Negative for headache, numbness, tingling. 13:05 All other systems are negative. Exam: 13:05 Constitutional: This is a well developed, well nourished patient who is awake, alert, jh7 and in no acute distress. Head/Face: Normocephalic, atraumatic. Eyes: Pupils equal round and reactive to light, extra-ocular motions intact. Lids and lashes normal. Conjunctiva and sclera are non-icteric and not injected. Cornea within normal limits. Periorbital areas with no swelling, redness, or edema. Neck: Trachea midline, no thyromegaly or masses palpated, and no cervical lymphadenopathy. Supple, full range of motion without nuchal rigidity, or vertebral point tenderness. No Meningismus. Cardiovascular: Regular rate and rhythm with a normal S1 and S2. No gallops, murmurs, or rubs. Normal PMI, no JVD. No pulse deficits. Respiratory: Lungs have equal breath sounds bilaterally, clear to auscultation and percussion. No rales, rhonchi or wheezes noted. No increased work of breathing, no retractions or nasal flaring. 13:05 Back: No spinal tenderness. No costovertebral tenderness. Full range of motion. Skin: Warm, dry with normal turgor. Normal color with no rashes, no lesions, and no evidence of cellulitis. MS/ Extremity: Pulses equal, no cyanosis. Neurovascular intact. Full, normal range of motion. Neuro: Awake and alert, GCS 15, oriented to person, place, time, and situation. Motor strength 5/5 in all extremities. Sensory grossly intact. Normal gait. 13:05 Abdomen/GI: Inspection: abdomen appears normal, Bowel sounds: normal, Palpation: soft, mild abdominal tenderness, in the epigastric area. Vital Signs: 13:23 BP 108 / 75; Pulse 90; Resp 18 S; Temp 98.2(TE); Pulse Ox 96% on R/A; aa5 MDM: 13:21 Patient medically screened. 7 16:05 Differential diagnosis: viral Infection, bacterial infection, pneumonia Pleural jh7 Effusion. Data reviewed: vital signs, nurses notes, lab test result(s), EKG, radiologic studies, CT scan, plain films. Data interpreted: Pulse oximetry: is 96 %. Interpretation: normal. Counseling: I had a detailed discussion with the patient and/or guardian regarding: the historical points, exam findings, and any diagnostic results supporting the discharge/admit diagnosis, to return to the emergency department if symptoms worsen or persist or if there are any questions or concerns that arise at home. ED course: Reviewed lab, CXR, and CT findings with the patient. Informed her that there are no new changes. Pt states that her only complaint is "feeling really tired" and that she is having trouble getting her records from here to give to MD Morejon. Informed her that if she developed any new concerning symptoms, to return to the ER.. 03/09 13:20 Order name: Basic Metabolic Panel; Complete Time: 15:00 [facility] 03/09 13:20 Order name: CBC with Diff; Complete Time: 15:00 [facility] 03/09 13:20 Order name: LFT's; Complete Time: 15: [facility] 03/09 13:20 Order name: Magnesium; Complete Time: 15:00 [facility] 03/09 13:20 Order name: NT PRO-BNP; Complete Time: 15:00 [facility] 03/09 13:20 Order name: Troponin HS; Complete Time: 15: [facility] 03/09 13:20 Order name: XRAY Chest (1 view); Complete Time: 15: [facility] 03/09 13:20 Order name: Cardiac monitoring; Complete Time: 15:41 [facility] 03/09 15:14 Order name: Abdomen ; Complete Time: 16:01 [facility] 03/09 13:20 Order name: EKG - Nurse/Tech; Complete Time: 15:41 [facility] 03/09 13:20 Order name: IV Saline Lock; Complete Time: 15:41 [facility] 03/09 13:20 Order name: Labs collected and sent; Complete Time: 15:41 [facility] 03/09 13:20 Order name: O2 Per Protocol; Complete Time: 15:41 [facility] 03/09 13:20 Order name: O2 Sat Monitoring; Complete Time: 15:41 [facility] Administered Medications: No medications were administered Disposition Summary: 03/09/22 16:06 Discharge Ordered Location: Home [facility] Problem: chronic [facility] Symptoms: are unchanged [facility] Condition: Stable [facility] Diagnosis - Other malaise and fatigue [facility] Followup: [facility] - With: Private Physician - When: 2 - 3 days - Reason: Recheck today's complaints Discharge Instructions: - Discharge Summary Sheet [facility] - Weakness [facility] - Fatigue [facility] Forms: - Medication Reconciliation Form [facility] - Thank You Letter [facility] Signatures: Dispatcher [employer] Radha Monae RN RN aa5 Brittani Serra FNP FNP [facility]
[2022-03-11 21:13] VITALS: BP 108/75; TEMP 98.2; O2SAT 96
== END 2022-03-09 16:47 | disposition home or self-care (01) ==
LOC: ER 12:45
DX: R53.81 Other malaise (principal); R53.83 Other fatigue; R53.1 Weakness; I10 Essential (primary) hypertension; E11.9 Type 2 diabetes mellitus without complications; Z88.0 Allergy status to penicillin; Z85.118 Personal history of other malignant neoplasm of bronchus and lung
CPT/HCPCS: 85025; 80048; 36415; 83735; 80076; 84484; 83880; 74177; 71045; Q9967; 99283